=== PATIENT | female | born 1975 | race African-American/Black ===

== ENCOUNTER 2016-02-25 14:18 | Emergency (ER) | payer SELFPAY ==
[2016-02-25 14:42] VITALS: TEMP 97.9
--- NOTE | 2016-02-25 14:44 | ED.PDOC ---
History of Present Illness - General Chief Complaint: Back Pain or Injury Stated Complaint: upper back pain Time Seen by Provider: 02/25/16 14:23 Source: patient Exam Limitations: no limitations - History of Present Illness Initial Comments: the patient is a 40-year-old -Citizen Of [place] female presenting to the emergency room secondary to left upper back pain present for approximately 24 hours. The pain came on acutely when she was reaching across the bed. Extends down from the tissue adjacent to the left side of C7 down through T7. There is pain over the rhomboid muscle. Pain extends out to the edge of the scapula. There is no bruising. There is some muscle spasm noted. There is no gross deformity however. There is no rash. There is no erythema. Sensation is preserved. Lungs are clear. Range of motion passive and active for more preserved however she does limit somewhat due to pain with that shoulder. no rash, nuchal rigidity or meningeal signs. No headache. Timing/Duration: 24 hours Severity: moderate Improving Factors: immobilization Worsening Factors: movement Associated Symptoms: denies symptoms Allergies/Adverse Reactions: Allergies Codeine Allergy (Verified 01/13/16 14:03) Doxycycline Allergy (Verified 01/13/16 14:03) Penicillins Allergy (Verified 01/13/16 14:03) Home Medications: Ambulatory Orders Atenolol 06/27/14 Mmakbjqwfrltn-Kihd-Hfkkeqsgzs [Fioricet] 1 ea PO Q8H PRN #21 tab 02/25/16 Cyclobenzaprine HCl [Flexeril] 5 mg PO TID PRN #30 tab 02/25/16 Fluoxetine HCl [PROzac] 20 mg PO DAILY 02/25/16 Loratadine [Claritin] 10 mg PO DAILY 02/25/16 predniSONE [Prednisone] 20 mg PO DAILY #5 tab 02/25/16 Review of Systems - Review of Systems Constitutional: States: no symptoms reported EENTM: States: no symptoms reported Respiratory: States: no symptoms reported Cardiology: States: no symptoms reported Gastrointestinal/Abdominal: States: no symptoms reported Genitourinary: States: no symptoms reported Musculoskeletal: States: back pain Skin: States: no symptoms reported Neurological: States: no symptoms reported Endocrine: States: no symptoms reported All other Systems: No Change from Baseline Past Medical History (General) - Patient Medical History Hx Seizures: No Hx Asthma: Yes Hx Cardiac Disorders: No Hx Congestive Heart Failure: No Hx Pacemaker: No Hx Hypertension: Yes Hx Diabetes: No Hx Gastroesophageal Reflux: No Hx Cancer: No Hx Hepatitis C: No - Vaccination History Hx Tetanus, Diphtheria Vaccination: No Hx Influenza Vaccination: No Hx Pneumococcal Vaccination: No - Social History Hx Tobacco Use: Yes Hx Alcohol Use: No Hx Substance Use Treatment: No - Female History Patient : No Family Medical History - Family History Mother Family History: Unknown Physical Exam - Physical Exam General Appearance: Alert, Comfortable, No apparent distress Eye Exam: bilateral normal Ears, Nose, Throat: normal ENT inspection Neck: full range of motion, supple Respiratory: lungs clear, normal breath sounds, no respiratory distress, no accessory muscle use Cardiovascular/Chest: normal peripheral pulses, regular rate, rhythm, no edema Peripheral Pulses: radial,right: 2+, radial,left: 2+ Gastrointestinal/Abdominal: other - obese Rectal Exam: deferred Back Exam: other - see history of present illness. There is no tenderness to palpation over the spinous processes. There is no step-off. No gross deformity. Neurologic: alert, normal mood/affect, oriented x 3 Skin Exam: normal color Progress - Progress Progress: 02/25/16 14:44 the patient is a 40-year-old female presenting with a left-sided rhomboid and trapezius strain. She needs to do stretching exercises as instructed. She'll be placed on prednisone for 5 days along with a muscle relaxer and Fioricet for pain control. She needs to use topical heat. She needs to follow-up with her primary care doctor early next week. ER warnings were given for any worsening. Departure - Departure Clinical Impression: Rhomboid muscle strain Qualifiers: Encounter type: initial encounter Qualifier Code: (S29.012A) Strain of muscle and tendon of back wall of thorax, initial encounter Disposition: Discharge to Home or Self Care Condition: Fair Departure Forms: ED Discharge - Pt. Copy, Patient Portal Self Enrollment Instructions: DI for Muscle Strain Diet: low fat, low cholesterol Activity: increase activity as tolerated Referrals: Lissett Argueta NP [Primary Care Provider] - 1-2 Weeks Prescriptions: Dnrgzteyjoxng-Uqek-Jxieucslud [Fioricet] 1 ea PO Q8H PRN #21 tab PRN Reason: Pain Cyclobenzaprine HCl [Flexeril] 5 mg PO TID PRN #30 tab PRN Reason: Muscle Spasms predniSONE [Prednisone] 20 mg PO DAILY #5 tab Home Medications: Ambulatory Orders Atenolol 06/27/14 Jtuevqzmfswve-Zqfy-Gxjjybqivx [Fioricet] 1 ea PO Q8H PRN #21 tab 02/25/16 Cyclobenzaprine HCl [Flexeril] 5 mg PO TID PRN #30 tab 02/25/16 Fluoxetine HCl [PROzac] 20 mg PO DAILY 02/25/16 Loratadine [Claritin] 10 mg PO DAILY 02/25/16 predniSONE [Prednisone] 20 mg PO DAILY #5 tab 02/25/16 Additional Instructions: the patient is a 40-year-old female presenting with a left-sided rhomboid and trapezius strain. She needs to do stretching exercises as instructed. She'll be placed on prednisone for 5 days along with a muscle relaxer and Fioricet for pain control. She needs to use topical heat. She needs to follow-up with her primary care doctor early next week. ER warnings were given for any worsening.
[2016-02-25] MEDS ORDERED: KETOROLAC TROMETHAMINE INJ 30 MG/ML VIAL IM ONE (14:48)
[2016-02-25 15:06] VITALS: BP 127/86; O2SAT 96
== END 2016-02-25 15:10 | disposition home or self-care (01) ==
LOC: ER 14:18
DX: S29.012A Strain of muscle and tendon of back wall of thorax, initial encounter (principal); Z88.6 Allergy status to analgesic agent; Z88.3 Allergy status to other anti-infective agents; Z88.0 Allergy status to penicillin; I10 Essential (primary) hypertension; J45.909 Unspecified asthma, uncomplicated; Z87.891 Personal history of nicotine dependence; Z79.899 Other long term (current) drug therapy; X50.1XXA Overexertion from prolonged static or awkward postures, initial encounter

== ENCOUNTER 2016-05-18 13:25 | Observation (INO) | payer SELFPAY ==
--- NOTE | 2016-05-18 13:44 | ED.PDOC ---
History of Present Illness - General Time Seen by Provider: 05/18/16 13:36 Source: patient Additional Information: PT C/O [facility] AND DIZZINESS - History of Present Illness Initial Comments: PT STATES SX'S STARTED THIS AM WITH [facility] FOLLOWED BY DIZZINESS. WENT TO WORK DEVELOPED CP, SO SHE CAME TO ER FOR EVALUATION Severity: moderate Improving Factors: nothing Worsening Factors: nothing Allergies/Adverse Reactions: Allergies Codeine Allergy (Verified 05/18/16 13:41) Doxycycline Allergy (Verified 05/18/16 13:41) Penicillins Allergy (Verified 05/18/16 13:41) Home Medications: Ambulatory Orders Atenolol & Chlorthalidone [Atenolol/Chlorthalidone 50-25 mg] 1 tab PO DAILY 05/31 Fluoxetine HCl [PROzac] 20 mg PO DAILY 05/18/16 Loratadine [Claritin] 10 mg PO DAILY 05/18/16 Ranitidine HCl 150 mg PO DAILY 05/18/16 Review of Systems - Review of Systems Constitutional: States: diaphoresis. Denies: chills, fever EENTM: Denies: blurred vision, throat pain Respiratory: States: short of breath. Denies: cough, wheezing Cardiology: States: chest pain. Denies: palpitations, syncope Gastrointestinal/Abdominal: States: nausea, vomiting. Denies: abdominal pain Genitourinary: States: no symptoms reported Musculoskeletal: States: no symptoms reported Skin: States: no symptoms reported Neurological: States: headache, other - VERTIGO. Denies: numbness Endocrine: States: no symptoms reported Past Medical History (General) - Patient Medical History Hx Seizures: No Hx Asthma: Yes Hx Cardiac Disorders: No Hx Congestive Heart Failure: No Hx Pacemaker: No Hx Hypertension: Yes Hx Diabetes: No Hx Gastroesophageal Reflux: No Hx Cancer: No Hx Hepatitis C: No Surgical History: no surgical history - Vaccination History Hx Tetanus, Diphtheria Vaccination: Yes Hx Influenza Vaccination: No Hx Pneumococcal Vaccination: No - Social History Hx Tobacco Use: Yes Hx Alcohol Use: No Hx Substance Use Treatment: No Hx Depression: Yes - Activities of Daily Living Hospice Agency (if applicable):: None - Female History Patient is a Female of Child Bearing Age (10 -59 yrs old): Yes Patient : No Family Medical History - Family History Mother Family History: Unknown Physical Exam - Physical Exam General Appearance: Alert, Anxious, No apparent distress, Obese Eye Exam: bilateral normal Ears, Nose, Throat: hearing grossly normal, normal ENT inspection, normal pharynx Neck: non-tender, full range of motion, supple Respiratory: lungs clear, normal breath sounds, no respiratory distress Cardiovascular/Chest: regular rate, rhythm, no edema, no murmur Gastrointestinal/Abdominal: normal bowel sounds, non tender, soft, no organomegaly Back Exam: normal inspection, no CVA tenderness, no vertebral tenderness Extremity: normal range of motion, normal inspection Neurologic: normal mood/affect, oriented x 3 Skin Exam: normal color Lymphatic: no adenopathy Progress - Progress Progress: 05/18/16 14:46 PT FEELS BETTER. IS DIFFICULT TO TELL WHETHER SHE IS STILL HAVING CP OR NOT. SHE USES STATEMENTS SUCH "NOT MUCH, NOT REALLY, AND I'M BETTER." I SUSPECT SHE MIGHT BE HAVING SOME RESIDUAL PAIN. HAVE RECOMMENDED OBSERVATION SHE IS CONSIDERING AT THIS POINT IN TIME. - EKG/XRAY/CT EKG: Sinus - RATE 69, NL AXIS, NL INTERVALS, NON SP T WAVE CHANGES, NAIP, COMPARED TO 06/27/14, NO SIGN CHANGE. Xray Comments: HAVE REVIEWED FILM AND REPORT AGREE YEISON Departure - Departure Clinical Impression: Dizziness, nonspecific, Chronic hypertension Chest pain Qualifiers: Chest pain type: unspecified Qualifier Code: (R07.9) Chest pain, unspecified ICD-10 Supporting Text: DDX. CHEST WALL PAIN, GERD, ANGINA, NSTEMI Time of Disposition: 15:45 - D/W KIAH WILL ADMIT Disposition: Discharge to Home or Self Group Home Medications: Ambulatory Orders Atenolol & Chlorthalidone [Atenolol/Chlorthalidone 50-25 mg] 1 tab PO DAILY 05/31 Fluoxetine HCl [PROzac] 20 mg PO DAILY 05/18/16 Loratadine [Claritin] 10 mg PO DAILY 05/18/16 Ranitidine HCl 150 mg PO DAILY 05/18/16
[2016-05-18] MEDS ORDERED: SODIUM CHLORIDE 0.9% 1000ML 1,000 ML IVS ONE (13:48)
[2016-05-18] MEDS ORDERED: KETOROLAC TROMETHAMINE INJ 30 MG/ML VIAL IV ONE (13:48)
[2016-05-18] MEDS ORDERED: MECLIZINE HCL 12.5 MG TAB PO ONE (13:49)
--- NOTE | 2016-05-18 14:23 | RAD ---
EXAM DESCRIPTION: Chest,2 Views CLINICAL HISTORY: 40 years,Female,CHEST PAIN COMPARISON: April 18, 2007 FINDINGS: There are no consolidations. No effusions. No pneumothoraces. No nodules. Bony elements unremarkable for age. IMPRESSION: Unremarkable chest for age stable Electronically signed by: Nicolás Park MD 05/18/2016 2:23 PM CDT
--- NOTE | 2016-05-18 16:14 | HP ---
SUPERVISING PHYSICIAN: Jeffery Morocho M.D. CHIEF COMPLAINT: Headache and dizziness. HISTORY OF PRESENT ILLNESS: Ms. Sun is a 40 year-old female patient that noted this morning she woke up with a headache and that was followed with some dizziness. She just kind of worked through this, went to work and then at work developed some chest discomfort that she called chest pains and after that point she presented to the Emergency Department for evaluation. In the Emergency Department, laboratory studies showed that he white count was slightly elevated at 11.9. Chemistries showed troponin to be less than 0.02 and electrolytes were all within normal limits. Her initial EKG showed normal sinus rhythm at 69 with just some nonspecific T wave changes but compared to 06/27/14 no significant changes. She was given Toradol and Meclizine in the Emergency Department and her symptoms resolved. Given that she has a history of hypertension and her current symptoms prior to admission, the patient is going to be placed in Observation tonight to further rule out any acute coronary syndrome to have repeat cardiac enzymes and close cardiac telemetry. She was admitted to the Medical/Surgical floor in stable condition. It was also noted that the patient has been having a significant amount of gastroesophageal reflux disease type symptoms and taking Xanax on a regular basis, but she notes the indigestion is getting worse on a daily basis. She has inability to sleep well at night secondary to the indigestion. PAST MEDICAL HISTORY: 1. Asthma. 2. Hypertension. 3. Depression. 4. Seasonal allergies. 5. History of migraines. 6. Chronic back pain. 7. Gastroesophageal reflux disease. PAST SURGICAL HISTORY: She has not had any surgeries. HOME MEDICATIONS: 1. Atenolol/Chlorthalidone 50/25 mg 1 tab daily. 2. Claritin 10 mg daily. 3. Prozac 20 mg daily. 4. Ranitidine 150 mg daily. ALLERGIES: CODEINE, DOXYCYCLINE AND PENICILLINS. FAMILY HISTORY: Significant for congestive heart failure and diabetes. SOCIAL HISTORY: The patient works at [employer]. She lives in [place]. She does have a history of smoking since age 25, but says she only smokes 2 to 3 cigarettes a day. She denies ever drinking or using any illicit drugs. REVIEW OF SYSTEMS: CONSTITUTIONAL: Noted for some diaphoresis with the dizziness, but denies any chills or fever. HEENT: Denies any blurred vision, sore throat, ear pain or nasal congestion. RESPIRATORY: Noted some shortness of breath with current symptoms prior to arrival. Denies any cough, wheezing or upper respiratory symptoms. CARDIOVASCULAR: As noted in the History of Present Illness with chest pains but denies any palpitations or any syncopal episodes. GASTROINTESTINAL: She has had some nausea and vomiting, and notes that she has had some frequent diarrhea, but denies any abdominal pain. GENITOURINARY: Denies any dysuria, hematuria or other urinary symptoms. NEUROLOGIC: She does have history of headaches and migraines, and has a recent episode of vertigo as noted in the History of Present Illness, but denies any numbness or paresthesias or syncopal episodes. PHYSICAL EXAMINATION: VITAL SIGNS: Temperature 97.8, pulse 55, blood pressure 123/82, respirations 18 , satting 100% on room air. Admission weight is 79.3 kg. GENERAL: The patient on admission to the Medical/Surgical floor appeared to be without any acute distress. She is obese in appearance and well hydrated. HEENT: Tympanic membranes are clear bilaterally. Oropharynx is pink. Mucosal membranes are moist. There are no lesions. NECK: No jugular venous distention noted. Neck is supple with full range of motion, non-tender. CHEST: Lungs are clear to auscultation without any rhonchi, wheezing or rales. CARDIOVASCULAR: Regular rate and rhythm without appreciable murmurs, gallops, or rubs. ABDOMEN: Obese but soft, non-tender. Positive bowel sounds. EXTREMITIES: No clubbing, cyanosis or edema. NEUROLOGIC: She is alert and oriented times three. LABORATORY: Initial white count was 11.9, hemoglobin 13.7, hematocrit 41.6, platelet count 215,000. Differential shows to be without a left shift. Chemistries show sodium 138, potassium 3.6, magnesium is pending. BUN 17, creatinine 0.72. Initial troponin was less than 0.02. Liver functions showed to be within normal limits. Urinalysis is pending. RADIOLOGY: Chest x-ray per radiology interpretation in the Emergency Department prior to admission was unremarkable chest for age and stable. ASSESSMENT: 1. Chest pain, unknown etiology with current cardiac enzymes showing negative and EKG without any acute changes. 2. History of hypertension. 3. Recent episodes of diarrhea with some vertigo and headaches with the patient having a history of migraines. 4. Gastroesophageal reflux disease, symptomatic requiring self medication with Ranidine noting that symptoms had been worsening over the last month. 5. Depression and anxiety. 6. Seasonal allergies. 7. Chronic back pain. 8. Hypertension. PLAN: The patient will be placed in Observation tonight to rule out any acute coronary syndrome. She will be placed on cardiac telemetry, close observation with repeat cardiac enzymes every 6 hours and in the morning with EKG as well. She will be started on DVT prophylaxis as per protocol. Her medications will be resumed once they have been updated and verified in the medical records. I will go ahead and do a H. pylori IgG test as the patient has noted her GERD symptoms have worsened. Will anticipate possible discharge tomorrow with length of stay 1 to 2 days. Until discharge, will continue to monitor the patient closely and treat appropriately. Once the patient is discharged, she will need close clinical followup with her primary care provider at the [facility] as well as Cardiology to be arranged through the clinic. Until then, will monitor and treat appropriately. #[id number] [facility]
[2016-05-18] MEDS ORDERED: ACETAMINOPHEN 325 MG TAB PO PRN (16:29)
[2016-05-18] MEDS ORDERED: SODIUM CHLORIDE 0.9% (FLUSH) 10 ML SYG IV PRN (16:29)
[2016-05-18] MEDS ORDERED: MORPHINE SULFATE INJ 10 MG/ML VIAL IV PRN (16:29)
[2016-05-18] MEDS ORDERED: ASPIRIN (CHEWABLE) 81 MG TAB PO ONE (16:29)
[2016-05-18] MEDS ORDERED: NITROGLYCERIN 0.4 MG 25 EA TAB SL PRN (16:29)
[2016-05-18] MEDS ORDERED: IV SET AND CAP CHANGE INJ INJ SCH (16:30)
[2016-05-18] MEDS ORDERED: PANTOPRAZOLE SODIUM IV 40 MG VIAL IV SCH (18:00)
[2016-05-18] MEDS: SODIUM CHLORIDE 0.9% (FLUSH) 10 ML SYG IV SCH (20:39)
[2016-05-18] MEDS ORDERED: LORATADINE 10 MG TAB PO SCH (21:00)
[2016-05-19] MEDS ORDERED: CHLORTHALIDONE 25 MG TAB ONE (08:01)
[2016-05-19] MEDS ORDERED: ATENOLOL 25 MG TAB ONE (08:01)
[2016-05-19] MEDS: SODIUM CHLORIDE 0.9% (FLUSH) 10 ML SYG IV SCH (08:36)
[2016-05-19] MEDS ORDERED: ASPIRIN TABLET 325 MG TAB PO SCH (09:00)
[2016-05-19] MEDS ORDERED: CHLORTHALIDONE 25 MG TAB PO SCH (09:00)
[2016-05-19] MEDS ORDERED: [UNRECOGNIZED DRUG - OTHER] PO SCH (09:00)
[2016-05-19] MEDS ORDERED: ATENOLOL 25 MG TAB PO SCH (09:00)
[2016-05-19] MEDS ORDERED: FLUoxetine HCL 20 MG CAP PO SCH (09:00)
[2016-05-19] MEDS ORDERED: ATENOLOL PO SCH (09:00)
[2016-05-19] MEDS ORDERED: CHLORTHALIDONE PO SCH (09:00)
[2016-05-19 10:27] VITALS: BP 115/79; TEMP 98; O2SAT 97
[2016-05-19] MEDS ORDERED: POTASSIUM CHLORIDE 20 MEQ TAB PO ONE (11:04)
[2016-05-19] MEDS ORDERED: PANTOPRAZOLE SODIUM IV 40 MG VIAL IV SCH (21:00)
--- NOTE | 2016-05-19 21:23 | DS ---
SUPERVISING PHYSICIAN: Shaquille Gonzalez M.D. DISCHARGE DIAGNOSIS: 1. Chest pain unknown etiology with current cardiac enzymes showing negative as well as no changes on her EKG. 2. History of hypertension. 3. Recent episodes of diarrhea with some vertigo and headaches with the patient having had a history of migraines. 4. Gastroesophageal reflux disease that has required self medications of Ranitidine with worsening symptoms over the last month. 5. Depression and anxiety. 6. Seasonal allergies. 7. Chronic back pain. 8. Hypertension. HISTORY OF PRESENT ILLNESS: This is a 40 year-old female patient who woke up on the morning of her admission with a headache and some dizziness. Some of the symptoms resolved and she went to work, but after that she developed some chest discomfort and she came to the Emergency Room for evaluation. In the Emergency Room, her white count was slightly elevated at 11.9. Troponin was less than 0.02 and electrolytes were all within normal limits. Her initial EKG showed normal sinus rhythm at 69 and there were no changes compared to her EKG of 06/27/14. She was given Toradol and Meclizine in the Emergency Room and her symptoms resolved. She was placed in Observation to rule out any acute coronary syndrome and to repeat her cardiac enzymes as well as cardiac telemetry. Upon admission, she did have quite a bit of gastroesophageal reflux symptoms and she takes Xanax on a regular basis, but over the last month her indigestion has worsened and she has been taking quite a bit of Ranitidine. Her symptoms are mostly problematic at night. HOSPITAL COURSE: The patient continued to have negative cardiac enzymes. She was given Pantoprazole IV and her GERD symptoms improved. Her vital signs remained stable and she was afebrile. Her complete blood count was basically within normal limits as well as her chemistry other than her potassium was slightly low at 3.4. She was given 1 dose of potassium. Her glucose was slightly elevated although that could have been due to increased stressors. Her lipid panel was within normal limits. At this point, I believe she can be discharged home with close followup with her primary care physician which is Lissett Argueta at [facility]. DISCHARGE PLAN: The patient will be discharged home in stable condition. She is to resume her previous diet. She is to have a followup with Lissett Argueta on 05/24/16 at 3:10 PM. It is recommended that she have a GI consultation. I have discharged her on her home medications as well as Protonix daily for 30 days. Her blood sugars were slightly elevated, so further testing for diabetes may be considered. She is to return to the hospital or followup at [facility] for any problems. DISCHARGE MEDICATIONS: 1. Ranitidine. 2. Claritin. 3. Prozac. 4. Atenolol. 5. Chlorthalidone. 6. Pantoprazole. Dr. Gonzalez is the collaborating physician available for consultation. #[id number] [facility]
== END 2016-05-19 12:55 | disposition home or self-care (01) ==
LOC: ER 13:25 → MS 16:13
PROVIDERS: ADMIT Nurse Practitioner Family; ATTEND Nurse Practitioner Acute Care
DX: R07.89 Other chest pain (principal); I10 Essential (primary) hypertension; R19.7 Diarrhea, unspecified; R42 Dizziness and giddiness; R51 Headache; R06.02 Shortness of breath; K21.9 Gastro-esophageal reflux disease without esophagitis; F32.9 Major depressive disorder, single episode, unspecified; F41.9 Anxiety disorder, unspecified; J30.2 Other seasonal allergic rhinitis; G89.29 Other chronic pain; M54.9 Dorsalgia, unspecified; F17.210 Nicotine dependence, cigarettes, uncomplicated; Z79.899 Other long term (current) drug therapy; Z88.0 Allergy status to penicillin; Z88.1 Allergy status to other antibiotic agents; Z88.6 Allergy status to analgesic agent; Z82.49 Family history of ischemic heart disease and other diseases of the circulatory system; Z83.3 Family history of diabetes mellitus
CPT/HCPCS: 36415 ×4; 71020; 80048; 80053; 80061; 80307; 81001; 81025; 82550 ×3; 82553 ×3; 83735; 84484 ×3; 85025 ×2; 86317; 93005 ×3; 94760 ×3; 96361; 96374; 96375; 99284; G0378; J1885; J7030

== ENCOUNTER 2016-07-23 12:50 | Emergency (ER) | payer SELFPAY ==
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
--- NOTE | 2016-07-23 14:41 | RAD ---
EXAM DESCRIPTION: Hand,Right 3 Views CLINICAL HISTORY: pain COMPARISON: May 25, 2009 IMPRESSION: 3 views of the right hand show no evidence of acute fracture, focal bone destruction, or joint dislocation. There is 5 mm of ulnar negative variant is incidentally noted. Electronically signed by: Joo Bravo MD 07/23/2016 2:42 PM CDT
--- NOTE | 2016-07-23 14:43 | RAD ---
EXAM DESCRIPTION: Shoulder,Right 2 or More Views CLINICAL HISTORY: 40 years Female, pain COMPARISON: None. FINDINGS: There is no acute fracture or malalignment. The AC joint is unremarkable. There is no rib fracture or soft tissue abnormality. IMPRESSION: Negative exam. Electronically signed by: Chaparro Olguin MD 07/23/2016 2:43 PM CDT Workstation: [id number]
[2016-07-23 15:39] VITALS: BP 121/79
[2016-07-23 16:16] VITALS: TEMP 98; O2SAT 99
== END 2016-07-23 16:12 | disposition home or self-care (01) ==
LOC: ER 12:50
DX: M79.621 Pain in right upper arm (principal); M25.441 Effusion, right hand; Z82.49 Family history of ischemic heart disease and other diseases of the circulatory system; F32.9 Major depressive disorder, single episode, unspecified; I10 Essential (primary) hypertension; Q85.00 Neurofibromatosis, unspecified; Z79.899 Other long term (current) drug therapy; Z88.6 Allergy status to analgesic agent; Z88.3 Allergy status to other anti-infective agents; Z88.0 Allergy status to penicillin

== ENCOUNTER 2017-04-09 09:50 | Emergency (ER) | payer SELFPAY ==
[2017-04-09 10:06] VITALS: BP 130/90; TEMP 97.1; O2SAT 99
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
== END 2017-04-09 10:36 | disposition home or self-care (01) ==
LOC: ER 09:50
DX: H10.32 Unspecified acute conjunctivitis, left eye (principal); I10 Essential (primary) hypertension

== ENCOUNTER 2017-10-12 11:23 | Emergency (ER) | payer SELFPAY ==
[2017-10-12 11:39] VITALS: TEMP 98.2
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
[2017-10-12] MEDS ORDERED: LACTATED RINGERS 1,000 ML IVS ONE (11:44)
[2017-10-12] MEDS ORDERED: SUCRALFATE 1 GM/10 ML 1 GM UD PO ONE (11:44)
[2017-10-12] MEDS ORDERED: ALUM & MAG HYDROX-SIMETHICONE 30 ML, LIDOCAINE VISCOUS 2% 15 ML PO ONE ×2 (11:44)
[2017-10-12] MEDS ORDERED: PANTOPRAZOLE SODIUM IV 40 MG VIAL IV ONE (11:45)
[2017-10-12] MEDS ORDERED: ALUM & MAG HYDROX-SIMETHICONE 30 ML UD ONE (11:48)
[2017-10-12] MEDS ORDERED: LIDOCAINE HCL 2% (MOUTH-THROAT) 15 ML UD ONE (11:48)
--- NOTE | 2017-10-12 13:11 | US ---
EXAM DESCRIPTION: Abdomen,Complete: Ultrasound. CLINICAL HISTORY: pain COMPARISON: None Available. TECHNIQUE: Transabdominal scannin-dimensional and Doppler modes. FINDINGS: Gallbladder: Multiple echogenic stones within the gallbladder lumen with the largest measuring 1.7 cm. Posterior shadowing. Gallbladder wall measures 2.4 mm which is within normal limits and no thickening. Nontender with transducer pressure. Common bile duct: 5.6 Millimeters normal caliber Liver: Long axis is 17.1 cm. Well-defined echogenic structure in the right lobe measures 1.4 cm and a second similar-appearing structure in the right lobe measures 2.1 cm neither is vascular. No acoustic shadowing. Otherwise normal echogenicity and vascularity with normal caliber and hepatopedal flow in the portal vein. Smooth capsule with no ascites no intrahepatic biliary dilatation. Pancreas: Normal size and echogenicity. Abdominal aorta: Normal caliber from the proximal segment to the distal bifurcation 2.1 to 1.9 cm. IVC: visualized; normal caliber. Spleen normal echogenicity; long axis measurement is 9.8 cm. Right kidney: 11.4 cm long axis. Normal cortical thickness and echogenicity. No hydronephrosis or large calcifications. Left kidney: 10.7 cm long axis. Normal cortical thickness and echogenicity. No hydronephrosis or large calcifications. IMPRESSION: 1. Cholelithiasis of the gallbladder with no wall thickening or fluid. No tenderness during scanning. Normal caliber of the common bile duct 2. 2 hemangiomas in the liver. Borderline enlargement of the liver with normal echogenicity ducts and vascularity. Smooth capsule with no ascites. Normal ultrasound of the pancreas. 3. Ultrasound of the spleen and bilateral kidneys is unremarkable. 4. Normal caliber of the abdominal aorta and the IVC. Electronically signed by: Johnny Tamayo MD 10/12/2017 1:10 PM CDT
[2017-10-12 13:38] VITALS: BP 141/84; O2SAT 98
== END 2017-10-12 13:38 | disposition home or self-care (01) ==
LOC: ER 11:23
DX: K80.20 Calculus of gallbladder without cholecystitis without obstruction (principal); R11.2 Nausea with vomiting, unspecified; J45.909 Unspecified asthma, uncomplicated; I10 Essential (primary) hypertension; F32.9 Major depressive disorder, single episode, unspecified; Z87.891 Personal history of nicotine dependence; Z86.73 Personal history of transient ischemic attack (TIA), and cerebral infarction without residual deficits
CPT/HCPCS: 36415; 76700; 80048; 80076; 81001; 82550; 82553; 83690; 84484; 85025; 85610; 85730; J7120

== ENCOUNTER 2018-03-03 02:05 | Emergency (ER) | payer SELFPAY ==
[2018-03-03 02:21] VITALS: TEMP 96.6
[2018-03-03] MEDS ORDERED: ORPHENADRINE CITRATE 30 MG/ML AMP IV ONE (02:23)
[2018-03-03] MEDS ORDERED: KETOROLAC TROMETHAMINE INJ 30 MG/ML VIAL IV ONE (02:23)
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
--- NOTE | 2018-03-03 02:35 | RAD ---
EXAM DESCRIPTION: AP view of the chest CLINICAL HISTORY:42 years Female, R chest pain Comparison: May 18, 2016 FINDINGS: Minimal right basilar atelectasis. The lung volumes are decreased. Trace fluid in minor fissure. Cardiac silhouette is normal. IMPRESSION: Minimal right basilar subsegmental atelectasis. Electronically signed by: Danyel Muniz DO 03/03/2018 2:34 AM [facility]
[2018-03-03] MEDS ORDERED: fentaNYL CITRATE INJ 50 MCG/ML AMP IV ONE ×2 (03:43→04:12)
[2018-03-03] MEDS ORDERED: ONDANSETRON INJ 4 MG/2 ML VIAL IV ONE (03:44)
[2018-03-03] MEDS ORDERED: cefTRIAXone SODIUM 1 GM in SODIUM CHL 0.9% 50ML MIN-BAG+ 50 ML IVPB ONE (03:54)
[2018-03-03] MEDS ORDERED: cefTRIAXone SODIUM 1 GM VIAL ONE (03:56)
[2018-03-03] MEDS ORDERED: SODIUM CHL 0.9% 50ML MIN-BAG+ 50 ML IVPB ONE (03:56)
--- NOTE | 2018-03-03 04:02 | CT ---
EXAM: CT CHEST ANGIOGRAPHY WITH IV CONTRAST HISTORY: pleuritic R chest pain COMPARISON: None Available TECHNIQUE: Multiple helical axial tomographic images were obtained of the chest following administration of intravenous contrast per angiographic protocol. MIP reformatted images were obtained. This exam was performed according to our departmental dose-optimization program, which includes automated exposure control, adjustment of the mA and/or kV according to patient size and/or use of iterative reconstruction technique. FINDINGS: Thyroid gland: unremarkable. Axilla: unremarkable. Pulmonary arteries: Pulmonary arteries appear patent. No evidence of pulmonary embolism. Aorta: No evidence of aortic dissection or aneurysm. Mediastinum/yola: There is a mildly prominent right lower paratracheal lymph node measuring 2 cm x 1.6 cm (series 2, image 33). There is a prominent right hilar lymph node measuring 2.6 cm x 1.4 cm. Heart: Heart is normal in size. Lungs/airways: There is a wedge-shaped area of consolidation in the right upper lobe extending to the pleural surface. Airways are patent. Mild centrilobular and paraseptal emphysematous changes are present. Pleural spaces: There is a trace right pleural effusion. No pneumothorax. Osseous: Unremarkable. Soft tissues: Unremarkable. Visualized abdomen: Gallstone within the gallbladder is partly imaged. IMPRESSION: 1. No evidence of pulmonary embolism. 2. Wedge-shaped area of consolidation in the right upper lobe extending to the pleural surface which could represent pneumonia in the proper clinical setting with underlying malignancy difficult to entirely exclude. Consider follow-up CT in three months to ensure resolution. 3. Trace right pleural effusion. 4. Mildly prominent mediastinal and right hilar lymph nodes which may be reactive and can be followed up as appropriate. Electronically signed by: Jax Churchill MD 03/03/2018 4:01 AM [facility] [[email or web address]]
[2018-03-03] MEDS ORDERED: levoFLOXacin 500 MG TAB PO ONE (04:11)
[2018-03-03 04:38] VITALS: BP 101/64; O2SAT 98
== END 2018-03-03 04:38 | disposition home or self-care (01) ==
LOC: ER 02:05
DX: J18.9 Pneumonia, unspecified organism (principal); F32.9 Major depressive disorder, single episode, unspecified; I10 Essential (primary) hypertension; J45.909 Unspecified asthma, uncomplicated; Z87.891 Personal history of nicotine dependence; Z86.73 Personal history of transient ischemic attack (TIA), and cerebral infarction without residual deficits; Z79.899 Other long term (current) drug therapy; Z88.0 Allergy status to penicillin; Z88.5 Allergy status to narcotic agent; Z88.1 Allergy status to other antibiotic agents
CPT/HCPCS: 71045; 71275; 80053; 85025; 85379; 87040; J0696; J1885; J2360; J2405; J3010; J7050

== ENCOUNTER 2018-03-12 17:11 | Inpatient (IN) | payer SELFPAY ==
[2018-03-12] MEDS ORDERED: SODIUM CHLORIDE 0.9% 1000ML 1,000 ML IVS ONE (17:27)
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
[2018-03-12] MEDS ORDERED: ONDANSETRON INJ 4 MG/2 ML VIAL IV ONE (17:28)
--- NOTE | 2018-03-12 17:47 | RAD ---
EXAM DESCRIPTION: Chest,1 View CLINICAL HISTORY: 42 years Female, RIGHT PNEUMONIA COMPARISON: March 03, 2018 TECHNIQUE: Single view chest FINDINGS: Pulmonary consolidation has developed at the right base. No other changes. IMPRESSION: Right basilar pulmonary consolidation has developed Electronically signed by: Naseem Chance 03/12/2018 5:46 PM [employer]
[2018-03-12] MEDS ORDERED: PROMETHAZINE HCL INJ 25 MG/ML VIAL IM ONE (18:13)
[2018-03-12] MEDS ORDERED: ALUM & MAG HYDROX-SIMETHICONE 30 ML, LIDOCAINE VISCOUS 2% 15 ML PO ONE ×2 (18:46)
[2018-03-12] MEDS ORDERED: SUCRALFATE 1 GM/10 ML 1 GM UD PO ONE (18:47)
[2018-03-12] MEDS ORDERED: LIDOCAINE HCL 2% (MOUTH-THROAT) 15 ML UD ONE (19:02)
[2018-03-12] MEDS ORDERED: ALUM & MAG HYDROX-SIMETHICONE 30 ML UD ONE (19:02)
--- NOTE | 2018-03-12 21:43 | RAD ---
EXAM DESCRIPTION: Abdomen Flat Upright CLINICAL HISTORY: ABD PAIN COMPARISON: Ultrasound October 12, 2017 FINDINGS: Supine and upright images of the abdomen were submitted. Patient received contrast material for a CT scan. There is contrast material within the collecting system. There is no hydronephrosis. Curvilinear calcification at the right upper quadrant compatible with gallstones. Prior sonogram October 12, 2017 demonstrated gallstones. Blunted right costophrenic angle compatible pleural fluid versus pleural thickening. There is no free air in the abdomen. There is no evidence of bowel obstruction. IMPRESSION: Cholelithiasis. Blunted right costophrenic angle compatible with pleural fluid versus pleural thickening. Electronically signed by: Aleks Quiñones MD 03/12/2018 9:42 PM [facility]
[2018-03-12] MEDS ORDERED: levoFLOXacin 500MG IV 500 MG in PREMIX BAG 1 BAG IVPB ONE (21:46)
[2018-03-12] MEDS ORDERED: levoFLOXacin 500MG IV 100 ML IVPB ONE (22:38)
--- NOTE | 2018-03-12 23:14 | HP ---
SUPERVISING PHYSICIAN: Payam Gibbs MD CHIEF COMPLAINT: Nausea and vomiting with right upper quadrant abdominal pain. HISTORY OF PRESENT ILLNESS: This is a 42 year-old female patient who presented to the Emergency Room today due to nausea and vomiting since Tuesday. On 03/03/18, the patient was seen in the Emergency Room for similar symptoms and she was diagnosed with right-sided pneumonia and was given 5 days of Levaquin. During her course of antibiotics, she no longer had any nausea or vomiting but she continued to have some right-sided back and abdominal pain. After she completed her antibiotics, she said the nausea and vomiting came back and got to the point that on the date of admission she could hardly walk or get out of the car to come into the hospital, the nausea and vomiting was so bad. In September of 2017 she was diagnosed with gallstones but her only upper respiratory symptoms have been a dry cough. In the Emergency Room her vital signs were a tympanic membrane of 97.5 with heart rate of 80, blood pressure 165/102, respiratory rate 20 and 02 saturation 99% on room air. Her laboratory shows WBC of 14,000 with hemoglobin of 12.4 and hematocrit of 38.1. She has a left shift on her differential. Her electrolytes are basically within normal limits with a slightly elevated glucose of 125. Lipase was 22 and liver enzymes were all within normal limits. Urinalysis showed a cloudy appearance with a trace of intact blood, small amount of bilirubin and 2+ urine bacteria. The patient given Levaquin in the Emergency Room as well as some Zofran and some promethazine. She was also given a liter of sodium chloride and also given Carafate suspension. I was called for admission for right lower lobe pneumonia. PAST MEDICAL HISTORY: 1. Asthma. 2. Hypertension. 3. Depression. 4. Seasonal allergies. 5. History of migraines. 6. Chronic back pain. 7. Gastroesophageal reflux disease. 8. Neurofibromatosis. PAST SURGICAL HISTORY: None. . HOME MEDICATIONS: Per the EMR and awaiting verification. ALLERGIES: CODEINE, DOXYCYCLINE AND PENICILLINS. FAMILY HISTORY: Positive for congestive heart failure and diabetes. SOCIAL HISTORY: She lives in [place]. She has a history of smoking since age 25 but she only smokes 3 to 4 cigarettes per day. She denies any ETOH or illicit drug use. REVIEW OF SYSTEMS: GENERAL: Positive for subjective fever and chills as well as fatigue. Negative for weight changes. HEENT: Negative for sinus symptoms, ear pain, vision changes or sore throat. RESPIRATORY: Positive for dry cough that has been going on for several weeks, negative for shortness of breath or wheezing. CARDIOVASCULAR: Negative for chest pain, palpitations or tachycardia. GI: Positive for right upper quadrant abdominal pain as well as right-sided pain that extended to her right back. Positive for nausea and vomiting, negative for dirithromycin or constipation. GENITOURINARY: Negative for dysuria, hematuria, polyuria. NEUROLOGICAL: Positive for occasional migraines, although she presently does not have one. Negative for dizziness or seizures. PHYSICAL EXAMINATION: VITAL SIGNS: Temperature 98.8, pulse rate 90, blood pressure 172/95, respiratory rate 20, 02 saturation 93% on room air. GENERAL: This is a 42 year-old female patient who is lying in her hospital bed. She is in no acute distress. HEENT: Normocephalic and atraumatic. Pupils are equal and reactive. Oropharynx is clear. NECK: Supple without mass. CHEST: Essentially clear to auscultation bilaterally. Chest has equal rise and fall with inspiration and expiration. CARDIOVASCULAR: Regular rate and rhythm. ABDOMEN: Soft, nondistended. She is tender in the right upper quadrant with some mild right CVA tenderness. There is no guarding or rebound tenderness. Bowel sounds are positive. EXTREMITIES: No cyanosis, clubbing, or edema . NEUROLOGIC: She is awake, alert and oriented x 3. Cranial nerves II through XII are grossly intact. Laboratory is as per the history of present illness. RADIOLOGY: Chest x-ray shows right basilar pulmonary consolidation has developed. Abdominal x-ray: (1) Cholelithiasis; (2) Blunted right costophrenic angle compatible with pleural fluid versus pleural thickening. All other labs and films have been reviewed via the EMR. ASSESSMENT: 1. Right upper quadrant abdominal pain with nausea and vomiting. 2. Recent treatment for right lower lobe pneumonia. She was treated with Levaquin for 5 days and seen in the Emergency Room for pneumonia on 03/03/18. She has completed her antibiotic therapy. 3. Cholelithiasis. 4. History of hypertension. 5. History of neurofibromatosis. 6. Gastroesophageal reflux disease. 7. Seasonal allergies. 8. History of migraine headaches. PLAN: We will admit the patient to the hospital. I have continued her Levaquin antibiotics. I have also added Flagyl. I will repeat her lab in the morning as well as a chest x-ray. She will be n.p.o. at midnight and will do a gallbladder sonogram. Depending on the results of the sonogram, Dr. Snow may need to be consulted as she has had fairly significant GI symptoms and very few respiratory symptoms. I have ordered a PPI for ulcer prophylaxis and will hold on Lovenox until after her sonogram but I have ordered SCDs for DVT prophylaxis. She will have a primary IV and her home medications will need to be restarted after testing has been completed. We will continue to monitor the patient closely and follow as needed. #[id number] [facility]
[2018-03-13] MEDS ORDERED: metroNIDAZOLE IV PREMIX 500MG 100 ML IVPB ONE ×2 (01:09→07:22)
[2018-03-13] MEDS: KCL 20MEQ/D5 1/2NS 1,000 ML IVS PRN ×3 (01:17→20:37)
[2018-03-13] MEDS: IV SET AND CAP CHANGE INJ INJ SCH (01:17)
[2018-03-13] MEDS: metroNIDAZOLE IV PREMIX 500MG 500 MG in PREMIX BAG 1 BAG IVPB SCH ×2 (01:18→08:52)
[2018-03-13] MEDS ORDERED: ACETAMINOPHEN 325 MG TAB ONE (04:55)
[2018-03-13] MEDS ORDERED: ACETAMINOPHEN 325 MG TAB PO ONE (04:56)
[2018-03-13] MEDS: ONDANSETRON INJ 4 MG/2 ML VIAL IV PRN ×2 (04:57→20:30)
--- NOTE | 2018-03-13 07:24 | RAD ---
EXAM DESCRIPTION: Abdomen Flat Upright CLINICAL HISTORY: 42 years Female, pna; abd pain COMPARISON: Abdominal radiographs 03/12/2018 TECHNIQUE: 2 views of the abdomen. IMPRESSION: Moderate right pleural effusion. Nondilated bowel gas pattern is present. There is no pathologic calcification overlying the renal shadows or expected course of the ureters. Gallstones are redemonstrated. Curvilinear and serpiginous opacities within the right and left renal collecting systems likely represents residual contrast material. Residual contrast seen within the urinary bladder. Osseous structures and soft tissues are unremarkable. Electronically signed by: Antonio Fierro MD 03/13/2018 7:23 AM [facility]
--- NOTE | 2018-03-13 07:28 | RAD ---
EXAM DESCRIPTION: Chest,2 Views CLINICAL HISTORY: 42 years Female, pna; abd pain COMPARISON: Chest radiograph 03/12/2018. CTA chest 2018. TECHNIQUE: Frontal and lateral views of the chest. IMPRESSION: Cardiac silhouette is stably enlarged. Unchanged moderate right pleural effusion with adjacent atelectasis or consolidation such as pneumonia versus aspiration. Fluid is seen within the right minor fissure. Redemonstrated more well-defined oval-shaped opacity in the right midlung as clinically demonstrated on the comparison CT chest 03/03/2018. Recommend follow-up to resolution to exclude underlying malignancy. No left pleural effusion. No pneumothorax. Osseous structures are intact. Electronically signed by: Antonio Feirro MD 03/13/2018 7:27 AM [employer]
[2018-03-13] MEDS: SODIUM CHLORIDE 0.9% (FLUSH) 10 ML SYG IV SCH ×2 (08:57→20:23)
--- NOTE | 2018-03-13 10:54 | US ---
EXAM DESCRIPTION: Gall Bladder: Ultrasound. CLINICAL HISTORY: abd pain COMPARISON: None Available. TECHNIQUE: Transabdominal scannin-dimensional and Doppler modes. FINDINGS: Gallbladder: Multiple echogenic stones with prominent posterior shadowing limiting visualization of the posterior gallbladder. Wall thickness 1.5 mm within normal range. Tender with transducer pressure. No fluid surrounding the gallbladder. No ascites. Common bile duct: 5.4 mm normal caliber, 3.6 mm at the pancreas. Liver: 1.8 x 1.7 x 1.5 cm circumscribed echogenic mass with no increased vascularity. Long axis of the right lobe 17.7 cm. Normal echogenicity. Ducts not dilated. Hepatopedal flow in the portal vein which is normal caliber. Pancreas: Included segments normal echogenicity with pancreatic duct not seen.. Abdominal aorta: Normal caliber from the proximal segment to the distal bifurcation. IVC: visualized; normal caliber. Right kidney: Minimal thinning of the cortex with normal echogenicity. 12.1 cm long axis. No hydronephrosis or perinephric fluid. IMPRESSION: 1. Cholelithiasis and tenderness with transducer pressure over the gallbladder could indicate cholecystitis. Common bile duct normal caliber. 2. Right pleural effusion. 3. 1.8 cm circumscribed echogenic lesion in the right liver most likely hemangioma. Can be followed up with triple phase CT scan or MRI scan without and with gadolinium IV contrast and hemangioma protocol. 4. Normal caliber of the abdominal aorta and IVC. Mild cortical thinning of the right kidney otherwise negative. Electronically signed by: Johnny Tamayo MD 03/13/2018 10:53 AM [facility] [place]
--- NOTE | 2018-03-13 11:56 | CONS ---
DATE OF CONSULTATION: 03/13/18 REFERRING PHYSICIAN: Hospitalist Service, Dr. Morocho. HISTORY OF PRESENT ILLNESS: The patient is a 42-year-old female who was admitted through the Emergency Room for nausea and vomiting. She has a known history of cholelithiasis and had been treated for 7 days for pneumonia with Levaquin. The patient states she had not been able to keep her medicine, but said she missed no doses of her antibiotic. She has no history of hepatitis or jaundice. She does have a history of anemia, but states she does not have sickle cell trait or anemia. She also had neurofibromatosis with multiple skin lesions. She has also had 2+ bacteria in her urine. PAST MEDICAL HISTORY: 1. Asthma. 2. Hypertension. 3. Depression. 4. Migraines. 5. Gastroesophageal reflux disease. PAST SURGICAL HISTORY: None. OBSTETRIC HISTORY: She has had several children by vaginal delivery. CURRENT MEDICATIONS: Pending. ALLERGIES: CODEINE, DOXYCYCLINE, PENICILLIN. FAMILY HISTORY: Positive for congestive heart failure, diabetes. SOCIAL HISTORY: The patient lives here in [place]. She denies alcohol or drug use. She has a history of smoking, but only 3 to 4 cigarettes daily for almost 20 years. REVIEW OF SYSTEMS: Unremarkable except as in the history of present illness and the fact that the patient had right sided abdominal pain. She has had no hemoptysis or productive cough. PHYSICAL EXAMINATION: GENERAL: The patient is in no acute distress. VITAL SIGNS: The patient is currently afebrile. Blood pressure was elevated. Respiratory rate 20. HEENT: Sclerae nonicteric. Mucous membranes moist. NECK: Without adenopathy. She does have a small neurofibroma in her left lateral neck. CHEST: Decreased breath sounds in the right base posteriorly. Clear superiorly, posterior and anteriorly. HEART: Regular rate and rhythm without murmur. ABDOMEN: Mildly tender in the right upper quadrant without guarding. There is some CVA tenderness. EXTREMITIES: 1 to 2+ edema of bilateral lower extremities. RADIOLOGY: Her chest x-ray revealed an increased pleural effusion and cholelithiasis. Ultrasound performed this morning revealed no thickening, pericholecystic fluid or inflammatory changes otherwise around the gallbladder. LABORATORY: Today, white count 16,000, hemoglobin 11.5, platelet count 294,000, 78% neutrophils. Liver functions all within normal limits. Amylase and lipase within normal limits. Creatinine 0.62, potassium 3, sodium 138. ASSESSMENT: 1. Cholelithiasis with no signs of acute cholecystitis. 2. Pneumonia with pleural effusion. 3. Hypertension. 4. Depression. PLAN: We will restart her diuretics and add cefepime to the antibiotics and consider increasing the dose to 750 mg of Levaquin daily and follow the pleural effusion. If it does not resolve with diuretics and more aggressive antibiotic therapy, then we will consider a thoracentesis. #[id number] [facility]
[2018-03-13] MEDS ORDERED: CEFEPIME 2 GM VIAL ONE ×2 (12:22→23:23)
[2018-03-13] MEDS ORDERED: SODIUM CHL 0.9% 50ML MIN-BAG+ 50 ML IVPB ONE ×2 (12:22→23:23)
[2018-03-13] MEDS: CEFEPIME 2 GM in SODIUM CHL 0.9% 50ML MIN-BAG+ 50 ML IVPB SCH ×2 (12:27→23:26)
[2018-03-13] MEDS ORDERED: FUROSEMIDE INJ 20 MG/2 ML VIAL IV ONE (12:45)
[2018-03-13] MEDS: levoFLOXacin 750MG IV 750 MG in PREMIX BAG 1 BAG IVPB SCH (13:19)
--- NOTE | 2018-03-13 13:52 | PN ---
SUPERVISING PHYSICIAN: Jeffery Morocho MD DATE: 03/13/18 SUBJECTIVE: The patient states she has not had anymore nausea and vomiting. However, she has not had anything by mouth either. She still complains of right upper quadrant pain. It actually seems a little bit more lateral. No significant fever overnight. OBJECTIVE: VITAL SIGNS: Blood pressure 117/76. Heart rate 79. Respiratory rate 16. Temperature 98.0. Oxygen saturation 97%. GENERAL: Ms. Sun is a 42-year-old female in no active distress. NEUROLOGIC: Alert and oriented. LUNGS: Diminished in the right lower base, otherwise clear to auscultation bilaterally. CARDIOVASCULAR: Regular rate and rhythm. Normal S1, S2. ABDOMEN: Soft, obese. Positive bowel sounds. There is right upper quadrant tenderness to palpation. EXTREMITIES: Lower extremities with 2+ edema. Pulses 2+. Capillary refill is within normal limits. LABORATORY: White count 16,000, hemoglobin 11.5, hematocrit 36.0, platelet count 294. Chemistry with sodium 138, potassium 3.0, chloride 109, CO2 22, BUN 8, creatinine 0.62, glucose 122, calcium 8.0, albumin 2.7, lipase within normal limits at 27. RADIOLOGY: Chest x-ray shows unchanged moderate right pleural effusion with adjacent atelectasis versus consolidation. ASSESSMENT: 1. Right upper quadrant abdominal pain with nausea and vomiting, history of cholelithiasis. 2. Recent treatment for right lower lobe pneumonia with 5 days of Levaquin which started on 03/03/18. 3. Hypertension. 4. Neurofibromatosis. 5. Gastroesophageal reflux disease. 6. Seasonal allergies. 9. History of migraine headaches. PLAN: A gallbladder sonogram has already been ordered and does not reflect any cholecystitis. There is cholelithiasis, however, no indication of an acute infectious process. On the gallbladder sonogram, the fluid in the right pleural space was also evaluated and noted to be moderate. Dr. Snow was consulted and I discussed with him. At this point, it does not appear the gallbladder is the culprit behind this nausea and vomiting and acute infectious process, although at some point, the gallbladder will need to come out. Given the fact that the patient has continued right pleural effusion which appears worse now than it did on 03/03/18, I feel this is due to a pneumonia process. CT scan is down at this time at the hospital, so we will plan on doing at CT scan of the chest once again in the morning once the CT scanner is repaired. Also would consider thoracentesis to evaluate what kind of fluid we are dealing with. In the meantime, I will give her IV Lasix as she takes a diuretic, chlorthalidone, in her blood pressure medicine at home. She also has increased edema. She would benefit from echocardiogram if this is a transudate fluid. This can be done as an outpatient, however. #[id number] [facility]
[2018-03-13] MEDS ORDERED: TEMAZEPAM 15 MG CAP PO PRN (20:19)
[2018-03-13] MEDS: traMADol HCL 50 MG TAB PO PRN (20:26)
[2018-03-13] MEDS ORDERED: levoFLOXacin 500MG IV 500 MG in PREMIX BAG 1 BAG IVPB SCH (21:00)
[2018-03-13] MEDS ORDERED: MAGNESIUM HYDROXIDE 30 ML UD PO PRN (21:26)
[2018-03-14] MEDS: ONDANSETRON INJ 4 MG/2 ML VIAL IV PRN (02:20)
[2018-03-14] MEDS: KCL 20MEQ/D5 1/2NS 1,000 ML IVS PRN ×2 (06:29→20:56)
[2018-03-14] MEDS ORDERED: ONDANSETRON 4 MG TAB PO PRN (08:52)
[2018-03-14] MEDS: traMADol HCL 50 MG TAB PO PRN ×2 (09:15→23:07)
[2018-03-14] MEDS: SODIUM CHLORIDE 0.9% (FLUSH) 10 ML SYG IV SCH ×2 (09:18→22:39)
[2018-03-14] MEDS ORDERED: PROMETHAZINE HCL 25 MG TAB PO PRN (10:00)
[2018-03-14] MEDS ORDERED: SODIUM CHL 0.9% 50ML MIN-BAG+ 50 ML IVPB ONE ×2 (10:12→19:46)
[2018-03-14] MEDS ORDERED: CEFEPIME 2 GM VIAL ONE ×2 (10:12→19:47)
[2018-03-14] MEDS: ATENOLOL 25 MG TAB PO SCH (10:21)
[2018-03-14] MEDS: CHLORTHALIDONE 25 MG TAB PO SCH (10:21)
--- NOTE | 2018-03-14 10:30 | RAD ---
EXAM DESCRIPTION: Chest,2 Views CLINICAL HISTORY: follow up on effusion COMPARISON: Chest radiograph dated March 13, 2018 TECHNIQUE: PA and lateral views of the chest FINDINGS: Cardiac silhouette is at the upper limits of normal heart size. Pulmonary vascularity is within normal limits. Redemonstration of unchanged moderate right-sided pleural effusion with adjacent atelectasis and/or consolidation. Fluid is again seen in the right minor fissure. Previously seen oval-shaped opacity in the right midlung is not significantly changed compared to March 13, 2018. Lungs shows no confluent infiltrates. There is no pneumothorax. No acute osseous abnormality. IMPRESSION: 1. Overall, unchanged chest radiograph compared to March 13, 2018. 2. Redemonstration of unchanged moderate right-sided pleural effusion with adjacent atelectasis and/or consolidation. Fluid is again seen in the right minor fissure. 3. Previously seen oval-shaped opacity in the right midlung is not significantly changed compared to March 13, 2018. Electronically signed by: Nicolás Rangel MD 03/14/2018 10:28 AM [facility]
[2018-03-14] MEDS: FUROSEMIDE INJ 20 MG/2 ML VIAL IV SCH ×2 (10:59→16:18)
[2018-03-14] MEDS: CEFEPIME 2 GM in SODIUM CHL 0.9% 50ML MIN-BAG+ 50 ML IVPB SCH ×2 (10:59→22:39)
[2018-03-14] MEDS: levoFLOXacin 750MG IV 750 MG in PREMIX BAG 1 BAG IVPB SCH (13:05)
[2018-03-14] MEDS: FLUoxetine HCL 20 MG CAP PO SCH (16:17)
--- NOTE | 2018-03-14 16:22 | PN ---
SUPERVISING PHYSICIAN: Jeffery Morocho MD DATE: 03/14/18 SUBJECTIVE: The patient states she had a little bit of nausea and vomiting last night. I do not see anything in the bag and the nurses state that they did not witness her vomiting, however, they have given her some Zofran. She also is getting up and taking quite a few showers. She says that relaxes her muscles. She remains afebrile with stable vital signs. OBJECTIVE: VITAL SIGNS: Blood pressure 1537/84. Heart rate 71. Respiratory rate 16. Temperature 98.6. Oxygen saturation 98%. GENERAL: Ms. Sun is a 42-year-old female in no active distress currently. NEUROLOGIC: The patient is alert and oriented. LUNGS: Diminished in the right base, otherwise clear to auscultation bilaterally. CARDIOVASCULAR: Regular rate and rhythm. Normal S1, S2. ABDOMEN: Soft, obese. Positive bowel sounds. Still with right upper quadrant tenderness to palpation. EXTREMITIES: Lower extremities with 2+ pitting edema. LABORATORY: There is improvement in the white count to 14.8 from 16, stable hemoglobin. Sodium 137, potassium 3.7, chloride 108, CO2 of 21, BUN 8, creatinine 0.59, glucose 146, calcium 8.0. RADIOLOGY: Chest x-ray was done this morning which still reflects the right pleural effusion and there is also some fluid minor fissure. ASSESSMENT: 1. Right upper quadrant abdominal pain with nausea and vomiting with history of cholelithiasis. 2. Recent right lower lobe pneumonia with 5 days of Levaquin back on 03/03/18. 3. Hypertension. 4. Neurofibromatosis. 5. Gastroesophageal reflux disease. 6. Seasonal allergies. 9. History of migraine headaches. PLAN: At this point, there does not appear to be a lot of changes in the pleural effusion. I did give her a 20 mg dose of Lasix yesterday and today I am going to put her on scheduled doses twice a day of Lasix. At this point, CT is still down, it should be up tomorrow morning per report. She is still awaiting a CT scan of the chest to better evaluate this and insure that it is not an empyema. I discussed with Dr. Snow and he does feel like she needs to be diuresed to see if there is any reduction in the pleural effusion. We still cannot rule out that this is an infectious process. Will reevaluate her chest x-ray and labs in the morning as well. [facility][id number] [facility]
[2018-03-15] MEDS: KCL 20MEQ/D5 1/2NS 1,000 ML IVS PRN (05:50)
--- NOTE | 2018-03-15 07:20 | RAD ---
EXAM: Single view chest. INDICATION: Pleural effusion. COMPARISON: Chest x-ray: 03/14/2018. FINDINGS: There is mild worsening of the moderate right pleural effusion and right basilar airspace opacity. The left lung is clear. The heart size is stable. There is no pneumothorax. The bones are unchanged. IMPRESSION: Mild worsening of the moderate right pleural effusion and right basilar airspace opacity Electronically signed by: Agus Hennessy MD 03/15/2018 7:19 AM RN SURGICAL PCU Workstation: [id number]
[2018-03-15] MEDS: traMADol HCL 50 MG TAB PO PRN ×3 (08:13→21:39)
[2018-03-15] MEDS: FUROSEMIDE INJ 20 MG/2 ML VIAL IV SCH ×2 (08:14→16:46)
[2018-03-15] MEDS: FLUoxetine HCL 20 MG CAP PO SCH (08:14)
[2018-03-15] MEDS: SODIUM CHLORIDE 0.9% (FLUSH) 10 ML SYG IV PRN ×2 (08:14→16:45)
[2018-03-15] MEDS: CHLORTHALIDONE 25 MG TAB PO SCH (08:14)
[2018-03-15] MEDS: ATENOLOL 25 MG TAB PO SCH (08:14)
[2018-03-15] MEDS: SODIUM CHLORIDE 0.9% (FLUSH) 10 ML SYG IV SCH ×2 (08:51→23:27)
[2018-03-15] MEDS ORDERED: SODIUM CHL 0.9% 50ML MIN-BAG+ 50 ML IVPB ONE ×2 (10:29→20:05)
[2018-03-15] MEDS ORDERED: CEFEPIME 2 GM VIAL ONE ×2 (10:29→20:06)
[2018-03-15] MEDS: CEFEPIME 2 GM in SODIUM CHL 0.9% 50ML MIN-BAG+ 50 ML IVPB SCH ×2 (11:01→23:28)
[2018-03-15] MEDS ORDERED: POTASSIUM CHLORIDE 20 MEQ TAB PO ONE (11:52)
[2018-03-15] MEDS: levoFLOXacin 750MG IV 750 MG in PREMIX BAG 1 BAG IVPB SCH (12:04)
--- NOTE | 2018-03-15 17:06 | PN ---
DATE: 03/15/18 SUPERVISING PHYSICIAN: Jeffery Morocho M.D. SUBJECTIVE: The patient is lying in bed. She has no complaints. She said there is only minimal pain on the right side of her abdomen, but it has improved greatly since her admission. She tolerated her low fat diet without any problems. We discussed discharge on a low fat diet as well as with some oral antibiotics. She said she spoke to Dr. Snow at length about her condition as well as her plan of care. Denies shortness of breath, chest pain, nausea, vomiting, constipation or diarrhea. OBJECTIVE: VITAL SIGNS: Temperature 98, heart rate 55, blood pressure 113/73, respiratory rate 18, O2 sat 96% on room air. RESPIRATORY: Essentially clear to auscultation bilaterally. She is slightly diminished at the bases. CARDIAC: Regular rate and rhythm. GASTROINTESTINAL: Abdomen is soft, nondistended. It is mildly tender to that right lateral upper abdomen area. No rebound tenderness or guarding. Bowel sounds are positive. NEUROLOGIC: She is awake, alert and oriented times three. LABORATORY: WBCs are 12,000 with hemoglobin 11.7, hematocrit 36.1. Potassium is slightly low at 3.3 with glucose 110, serum osmolality 270.2. Calcium 8. Liver enzymes are basically within normal limits. Blood cultures show no growth after 48 hours. Chest x-ray showed mild worsening of the moderate right pleural effusion and right basilar airspace opacity. All other labs and films have been reviewed via the EMR. ASSESSMENT: 1. Right upper quadrant abdominal pain with nausea and vomiting with history of cholelithiasis. 2. Recent right lower lobe pneumonia with 5 days of Levaquin back on 03/03/18. 3. Hypertension. 4. Neurofibromatosis. 5. Gastroesophageal reflux disease. 6. Seasonal allergies. 9. History of migraine headaches. PLAN: We will continue present supportive care. Dr. Snow was somewhat concerned that the pleural effusion may be slightly worsened. We have stopped her IV fluids and continued on her Lasix. I have also given her some potassium replacement. We may need to do a CT of her chest tomorrow but I will discuss that with Dr. Snow at that point. Her diet was advanced to low fat and she seems to be tolerating that without any problems. I have repeated her lab and a chest x-ray for tomorrow. At this point if the pleural effusion does not worsen and her clinical condition continues to improve, she may be discharged home on a low fat diet as well as antibiotics. She will followup with Dr. Snow as an outpatient. Will probably need to send her home on some Lasix as well as she will need close followup with her primary care physician, Meron Hummel. Otherwise will continue to monitor and follow as needed. #[id number] [facility]
[2018-03-16] MEDS: IV SET AND CAP CHANGE INJ INJ SCH (04:58)
[2018-03-16] MEDS ORDERED: SODIUM CHL 0.9% 50ML MIN-BAG+ 50 ML IVPB ONE (07:33)
[2018-03-16] MEDS ORDERED: CEFEPIME 2 GM VIAL ONE (07:34)
--- NOTE | 2018-03-16 07:47 | RAD ---
EXAM DESCRIPTION: Chest,2 Views CLINICAL HISTORY: pna COMPARISON: Previous study March 15, 2018 TECHNIQUE: PA/lateral FINDINGS: Abnormal density is seen in the right mid and lower lung zones thought to be a combination of infiltrate and pleural fluid. Findings are consistent with pneumonia with parapneumonic effusion. The left lung is clear. Heart size is normal with normal pulmonary vascularity. Findings on frontal view are stable compared to the previous study. Lateral view shows intact sternum and T-spine. Increased density over the lower T-spine on the frontal view compared to previous study. IMPRESSION: Findings most consistent with right upper lobe and right lower lobe pneumonia with parapneumonic effusion. Electronically signed by: Thom Belle MD 03/16/2018 7:45 AM [employer]
[2018-03-16] MEDS: CHLORTHALIDONE 25 MG TAB PO SCH (08:39)
[2018-03-16] MEDS: FUROSEMIDE INJ 20 MG/2 ML VIAL IV SCH (08:39)
[2018-03-16] MEDS: FLUoxetine HCL 20 MG CAP PO SCH (09:13)
[2018-03-16] MEDS: traMADol HCL 50 MG TAB PO PRN (09:13)
[2018-03-16] MEDS: SODIUM CHLORIDE 0.9% (FLUSH) 10 ML SYG IV SCH (10:31)
[2018-03-16] MEDS: ATENOLOL 25 MG TAB PO SCH (10:31)
[2018-03-16 11:08] VITALS: O2SAT 94
[2018-03-16] MEDS: CEFEPIME 2 GM in SODIUM CHL 0.9% 50ML MIN-BAG+ 50 ML IVPB SCH (12:39)
[2018-03-16] MEDS: levoFLOXacin 750MG IV 750 MG in PREMIX BAG 1 BAG IVPB SCH (13:00)
[2018-03-16 13:39] VITALS: BP 97/65; TEMP 97.6
--- NOTE | 2018-03-16 20:04 | DS ---
SUPERVISING PHYSICIAN: Jeffery Morocho M.D. DISCHARGE DIAGNOSIS: 1. Right upper quadrant abdominal pain with nausea and vomiting with history of cholelithiasis. 2. Recent right lower lobe pneumonia with 5 days of Levaquin back on 03/03/18. 3. Hypertension. 4. Neurofibromatosis. 5. Gastroesophageal reflux disease. 6. Seasonal allergies. 9. History of migraine headaches. HISTORY OF PRESENT ILLNESS: This is a 42 year-old female patient who presented to the Emergency Room on the day of admission due to nausea and vomiting since the prior Tuesday. On 03/03/18, the patient was seen in the Emergency Room for similar symptoms and was diagnosed with right-sided pneumonia and was given 5 days of Levaquin. During her course of antibiotics, she no longer had any nausea or vomiting but had some right-sided back and right upper quadrant abdominal pain, but it was very mild. She completed her antibiotics and said the nausea and vomiting came back after she completed her antibiotics to the point she had to come to the hospital due to the worsening of the symptoms. In September of 2017 she was diagnosed with gallstones and the only upper respiratory symptoms that she had had prior to coming to the Emergency Room was a dry cough. Her vital signs were a temperature of 97.5 with heart rate of 80, blood pressure 165/102, respiratory rate 20 and 02 saturation 99% on room air. Her laboratory shows WBC of 14,000 with hemoglobin of 12.4 and hematocrit of 38.1. She had a left shift on her differential. Her electrolytes are basically within normal limits with a slightly elevated glucose of 125. Lipase was 22 and liver enzymes were all within normal limits. Urinalysis showed a cloudy appearance with a trace of intact blood, small amount of bilirubin and 2+ urine bacteria. The patient given Levaquin in the Emergency Room as well as some Zofran and some promethazine. She was also given a liter of sodium chloride as well as Carafate suspension. I was called for admission to the hospital. HOSPITAL COURSE: She was admitted to the hospital and we continued some Levaquin. Flagyl was added at that time. A gallbladder sonogram were ordered. The impression was: 1) Cholelithiasis and tenderness with transducer pressure over the gallbladder that could indicate cholecystitis. Common bile duct was normal caliber. 2) Right pleural effusion. 3) 1.8 circumscribed echogenic lesion in the right liver most likely hemangioma. Can be followed-up with triple phase CT scan or MRI scan without and with gadolinium IV contrast and hemangioma protocol. 4) Normal caliber of the abdominal aorta and IVC. Mild cortical thinning of the right kidney, otherwise negative. Dr. Snow was consulted and he felt that she had cholelithiasis with no signs of acute cholecystitis as well as pneumonia with pleural effusion. She was given diuretics and Cefepime was added to the antibiotics. He recommended that we follow the pleural effusion. Her symptoms lessened. She continued to have no further upper respiratory symptoms and the nausea and vomiting subsided. Initially they had planned to do a CT scan but the CT scanner was down. She was given Lasix in addition to the Chlorthalidone that is in her blood pressure medicine. Chest x-ray continued to show an unchanged radiograph and actually the pleural effusion worsened slightly yesterday with moderate right pleural effusion. She was diuresed. Her fluids were stopped. She was diuresed about 3 liters. Today, she has a hemoglobin 1 liter balance in her I and O. Her chest x-ray this morning showed findings most consistent with right upper lobe and right lower lobe pneumonia with parapneumonic effusion. It was felt to be somewhat smaller than the previous day's x-ray. WBCs are now at 11.8. Her differential is normal. Her CMP is basically unremarkable today. Preliminary blood cultures show no growth after 3 days. She will be discharged home in stable condition. DISCHARGE PLAN: The patient will be discharged home in stable condition. She is to resume her previous medications. I have not continued her Lasix at this time as she will have close followup with Dr. Pereyra at [facility] on 03/21/18 at 3:00 PM. She is to competed 5 days of Levaquin as well as 5 days of Cefdinir. She is to come to the hospital on 03/20/18 for a chest x- ray and some lab work prior to her appointment with Dr. Pereyra on the . She will need to followup with Dr. Snow for her gallstones and if the pleural effusion has worsened, she will also need close followup with Dr. Snow for the possibility of doing a thoracentesis. She is to resume her previous activity, increase as tolerated and to return to the hospital or followup with Dr. Pereyra for any problems or complications. DISCHARGE MEDICATIONS: 1. Prozac. 2. Atenolol/Chlorthalidone. 3. Promethazine. 4. Ranitidine. 5. Cefdinir. 6. Levaquin. [facility][id number] [facility]
== END 2018-03-16 16:00 | disposition home or self-care (01) | DRG 194 ==
LOC: ER 17:11 → MS 23:13 → OBSVTOIN 23:13
PROVIDERS: ADMIT Nurse Practitioner Acute Care; ATTEND Nurse Practitioner Acute Care
DX: J18.9 Pneumonia, unspecified organism (principal); J91.8 Pleural effusion in other conditions classified elsewhere; K80.20 Calculus of gallbladder without cholecystitis without obstruction; I10 Essential (primary) hypertension; J45.909 Unspecified asthma, uncomplicated; F32.9 Major depressive disorder, single episode, unspecified; G89.29 Other chronic pain; M54.9 Dorsalgia, unspecified; K21.9 Gastro-esophageal reflux disease without esophagitis; E86.0 Dehydration; F17.210 Nicotine dependence, cigarettes, uncomplicated; Q85.00 Neurofibromatosis, unspecified; Z88.0 Allergy status to penicillin; Z88.1 Allergy status to other antibiotic agents; Z88.5 Allergy status to narcotic agent

== ENCOUNTER → 2018-03-20 | Outpatient (CLI) | payer SELFPAY ==
--- NOTE | 2018-03-20 09:56 | RAD ---
EXAM DESCRIPTION: Chest,2 Views CLINICAL HISTORY: Lobar pneumonia COMPARISON: Previous study March 16, 2018 TECHNIQUE: PA/lateral FINDINGS: Compared to previous study, pulmonary infiltrate is less dense consistent with interval improvement. The right pleural effusion appears stable in size. Pneumonia with parapneumonic effusion would be considered most likely. Left lung remains clear. Heart size is normal with normal pulmonary vascularity. Bones are unremarkable. IMPRESSION: Improving pulmonary infiltrates. Moderate right pleural effusion unchanged. Electronically signed by: Thom Belle MD 03/20/2018 9:[address] [facility]
== END ==
LOC: LAB.O 09:05
PROVIDERS: ATTEND Nurse Practitioner Acute Care
DX: J18.1 Lobar pneumonia, unspecified organism (principal); J90 Pleural effusion, not elsewhere classified

== ENCOUNTER 2018-03-23 10:08 | Outpatient (CLI) | payer SELFPAY ==
--- NOTE | 2018-03-23 11:50 | RAD ---
EXAM DESCRIPTION: Chest,1 View: CR/DR/XR. CLINICAL HISTORY: 42 years Female post thoracentesis COMPARISON: Portable chest 03/20/2018. TECHNIQUE: ONE VIEW PORTABLE. AP 1141 hours, upright position. FINDINGS: Lung volumes to slightly decreased compared to prior chest x-ray. Effusion in the right base. Bibasilar atelectasis more on the right with residual consolidation. No mediastinal widening or pneumothorax. Cardiomegaly stable. Pulmonary vascularity not increased. IMPRESSION: No pneumothorax on the right post thoracentesis. Residual pleural effusion and bilateral atelectasis and residual infiltrate right lower lobe. Electronically signed by: Johnny Tamayo MD 03/23/2018 11:49 AM [employer]
--- NOTE | 2018-03-23 11:54 | US ---
EXAM DESCRIPTION: Thoracentesis: ULTRASOUND. CLINICAL HISTORY: 42 years Female RT PLEURAL EFFUSION COMPARISON: Portable chest x-ray postthoracentesis today showed no complications. TECHNIQUE: Transcutaneous scanning: Alvares-scale and Doppler modes.. 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 Small effusion pocket localized and overlying skin marked for thoracentesis performed by Dr. Snow. Sterile conditions and technique. FINDINGS: Images before and after thoracentesis show reduction of right pleural effusion pocket. Pleural thickening also noted. IMPRESSION: Successful right thoracentesis after ultrasound localization. 525 mL was removed.. Electronically signed by: Johnny Tamayo MD 03/23/2018 11:52 AM OPTICAL SCIENTIST
[2018-03-23 12:19] VITALS: BP 105/78; TEMP 98.4; O2SAT 95
--- NOTE | 2018-03-23 13:27 | OP ---
DATE OF PROCEDURE: 03/23/18 PREOPERATIVE DIAGNOSIS: 1. History of pneumonia. 2. History of right pleural effusion. 3. Right chest pain. 4. Cholelithiasis. POSTOPERATIVE DIAGNOSIS: 1. History of pneumonia. 2. History of right pleural effusion. 3. Right chest pain. 4. Cholelithiasis. PROCEDURE: 1. Sonographically guided right thoracentesis. SURGEON: Vinny Snow MD. MANAGEMENT AIDE: None. ANESTHESIA: Local infiltration of 1% lidocaine. INDICATION: The patient is a 42-year-old female who was hospitalized with right chest pain and noted to have a pleural effusion and consolidation. She also was noted to have gallstones, but had no signs, symptoms or radiologic findings associated with cholecystitis. She was brought to the outpatient department for a sonographically guided thoracentesis for culture and chemistries. FINDINGS: Approximately 525 mL of minesh colored fluid was obtained. PROCEDURE: After the patient was sat up at the bedside with her arms extended over a bedside table, she was examined with the remanufacturing technician and an area was selected. It was then prepped and draped in the usual sterile manner. The ultrasound probe was then placed in a sterile sleeve. Local infiltration of anesthesia was then obtained and a stab wound was then made with the 11 blade. At the first angle, we were unable to identify the pocket along with the catheter, so we moved inferiorly and laterally and made a second incision and were then easily able to guide the catheter into the space with the ultrasound. The catheter was advanced and the needle removed. 60 mL of fluid was obtained. This was used to obtain our cultures and chemistries and these were taken. At this point, the catheter was connected to a suction bottle in the usual manner and placed to suction. When the suction canister stopped, it was reattached to the three-way stopcock and using a 60 mL syringe, approximately another 50 mL of fluid was obtained for the total of 525 mL. The catheter was removed. Pressure was held over the area. It was then cleaned and reexamined to show that the majority of the fluid had been removed. The wound was then dressed by a 4 by 4 and Mefix. The patient tolerated the procedure well. A stat portable chest x- ray was ordered. This was sent for chemistries and culture. #[id number] [facility]
== END 2018-03-23 12:10 | disposition home or self-care (01) ==
LOC: US 10:08
PROVIDERS: ATTEND Surgery
DX: J91.8 Pleural effusion in other conditions classified elsewhere (principal)

== ENCOUNTER 2018-03-25 07:13 | Observation (INO) | payer SELFPAY ==
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
[2018-03-25] MEDS ORDERED: KETOROLAC TROMETHAMINE INJ 30 MG/ML VIAL IV ONE (08:11)
[2018-03-25] MEDS ORDERED: traMADol HCL 50 MG TAB PO ONE (09:01)
[2018-03-25] MEDS: KCL 40MEQ/NS 1,000 ML IVS PRN ×2 (09:41→21:57)
--- NOTE | 2018-03-25 10:07 | CT ---
PROCEDURE: CT Abdomen and Pelvis Without Intravenous Contrast CLINICAL INDICATION: The patient is 42 years old and is Female; abdominal pain TECHNIQUE: Axial computed tomography images of the abdomen and pelvis without intravenous contrast. Sagittal and coronal reformatted images were created and reviewed. As a consequence of the lack of intravenous contrast, there is limited evaluation of the organs and soft tissues. This CT exam was performed using one or more of the following dose reduction techniques: automated exposure control, adjustment of the mA and/or kV according to patient size, and/or use of iterative reconstruction technique. COMPARISON: Ultrasound abdomen from 10/12/2017. CTA chest from 03/03/2018. FINDINGS: LUNG BASES: Unremarkable. No mass. No consolidation. ABDOMEN: LIVER: Unremarkable noncontrast appearance of the liver. GALLBLADDER AND BILE DUCTS: The gallbladder is completely filled with calcified gallstones. It is not inflamed. No ductal dilation. PANCREAS: Unremarkable. No ductal dilation. SPLEEN: Unremarkable. No splenomegaly. No splenic lesion noted. ADRENALS: Unremarkable. No mass. KIDNEYS AND URETERS: There is no evidence of nephrolithiasis or ureteral obstruction bilaterally on this noncontrast CT. STOMACH AND BOWEL: There is no evidence of diverticulitis. There is no evidence of bowel obstruction. There is No oral contrast opacifying the bowel. There is an abundant amount of stool within the colonic lumen. The cecum is low lying. PELVIS: APPENDIX: The appendix is visualized and is normal in appearance. BLADDER: The urinary bladder is underdistended. No stones. 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 There is a leiomyomatous uterus. ABDOMEN and PELVIS: INTRAPERITONEAL SPACE: Unremarkable. No free air. No significant fluid collection. BONES/JOINTS: No acute fracture. SOFT TISSUES: There is rectus diastases of the anterior abdominal wall. VASCULATURE: Unremarkable. No abdominal aortic aneurysm. LYMPH NODES: Unremarkable. No significant retroperitoneal or pelvic lymphadenopathy. IMPRESSION: 1. A separate CT of the chest will be performed concomitantly and interpreted independently. This will describe the worsening process at the RIGHT lung base. 2. The gallbladder is completely filled with calcified gallstones. It is not inflamed. 3. There is no evidence of nephrolithiasis or ureteral obstruction bilaterally on this noncontrast CT. Electronically signed by: Max Lewis MD 03/25/2018 10:04 AM FURNITURE REPAIRER
--- NOTE | 2018-03-25 10:15 | RAD ---
PROCEDURE: XR Chest, 2 Views CLINICAL INDICATION: The patient is 42 years old and is Female; shortness of breath TECHNIQUE: Frontal and lateral views of the chest. COMPARISON: Comparison is made to the prior study dated two days earlier. FINDINGS: LUNGS: Far more extensive consolidation is identified at the RIGHT lung base. The LEFT lung is clear. Pulmonary vascularity is normal. PLEURAL SPACE: There is NO pneumothorax. There are no pleural effusions noted on the LEFT. HEART: The heart size is normal. MEDIASTINUM: The mediastinal contour is unremarkable. BONES/JOINTS: No acute abnormality. IMPRESSION: Far more extensive consolidation is identified at the RIGHT lung base. This is compatible with worsening necrosis, effusion and pneumonia. Electronically signed by: Max Lewis MD 03/25/2018 10:13 AM PATTERN CHAIN MAKER SUPERVISOR
--- NOTE | 2018-03-25 10:33 | CT ---
PROCEDURE: CT Chest Without Intravenous Contrast CLINICAL INDICATION: The patient is 42 years years old, Female; shortness of breath worsening with pneumonia/thora TECHNIQUE: Axial computed tomography images of the chest without intravenous contrast. Sagittal and coronal reformatted images were created and reviewed. This CT exam was performed using one or more of the following dose reduction techniques: automated exposure control, adjustment of the mA and/or kV according to patient size, and/or use of iterative reconstruction technique. COMPARISON: No relevant prior studies available. FINDINGS: LUNGS: There is a wedge-shaped area of opacification in the right upper lobe measuring up to 5.7 cm x 4.8 cm. There is minimal scattered discoid as well as minimal dependent atelectasis bilaterally. Tiny peripheral blebs suggest paraseptal emphysema. Right upper lobe pneumonia in the anterior segment with a small right pleural effusion PLEURAL SPACE: There is minimal right pleural fluid. There is no left pleural fluid or pneumothoraces. HEART: See below. MEDIASTINUM: There is mild mural thickening in the distal esophagus. This may reflect nondistention and/or esophagitis. Neoplasia less likely but also in the differential. THYROID: The visualized thyroid appears prominent with the isthmus measuring up to 1.4 cm AP, the right lobe measuring up to 3.6 cm AP and the left lobe measuring up to 1.2 cm AP. Thyromegaly. BONES/JOINTS: There are no discernible acute fractures or areas of osseous destruction or osteoblastic lesions. SOFT TISSUES: Unremarkable. VASCULATURE: Evaluation of the pulmonary arterial vessels demonstrates no CT evidence of acute pulmonary embolus. There is no evidence of right to left interventricular septal bowing. No evidence of aortic aneurysm or dissection. LYMPH NODES: Unremarkable. There is no evidence of hilar, mediastinal or axillary adenopathy. LIVER: A 0.8 cm calcific density adjacent to the liver hilum could be a calculus in the gallbladder. OTHER FINDINGS: The remainder of the visualized upper abdominal viscera are unremarkable. IMPRESSION: 1. No evidence of acute pulmonary emboli or aortic aneurysm/dissection. 2. A 0.8 cm calcific density adjacent to the liver hilum could be a calculus in the gallbladder. 3. Atelectasis and or pneumonia in the anterior segment of the right upper lobe as well as a small right pleural effusion. Electronically signed by: Yee Agosto MD 03/25/2018 10:30 AM [facility]
[2018-03-25] MEDS ORDERED: VANCOMYCIN HCL INJ 1,000 MG in SODIUM CHLORIDE 0.9% 250ML 250 ML IVPB ONE (10:47)
--- NOTE | 2018-03-25 11:16 | HP ---
CHIEF COMPLAINT: Right sided rib pain. HISTORY OF PRESENT ILLNESS: Ms. Sun is a pleasant 42 year-old female who resides here in [place], who came to the . with ongoing right sided rib pain, possible flank pain. For the past several weeks she has had problems with pneumonia on the right side. On March 03, the patient was seen in the Emergency Room, diagnosed with pneumonia, and treated with 5 days of p.o. Levaquin. Upon completion, she started feeling poorly, and on the had greatly worsened shortness of breath and needed further evaluation. She was found to have a right sided pleural effusion, admitted to the hospital and started on antibiotics and Surgery was consulted. The effusion was not tapped, but she progressed well with antibiotics and discharged home. The patient returned to the hospital on March 23, and underwent a thoracentesis to drain the pleural effusion. She did well until yesterday, and pain slowly got worse. She woke this morning and had severe pain in her lower right ribs. She denies any fevers whatsoever, and no chills. She also denied any episodes of coughing up blood, but does endorse that her blood tastes copper-tinged. PAST MEDICAL HISTORY: 1. Hypertension. 2. Anxiety and depression on treatment. 3. Neurofibromatosis. 4. History of tobacco use. PAST SURGICAL HISTORY: 1. Thoracentesis 03/23/2018. CURRENT MEDICATIONS: 1. Atenolol/Chlorthalidone 50-25 mg p.o. daily. 2. Fluoxetine 40 mg daily p.o. 3. Potassium chloride 10 mEq p.o. daily. 4. Ranitidine 75 mg p.o. daily. 5. Tramadol 50 mg p.o. every 6 hours p.r.n. pain. 6. Phenergan tablet 25 mg every 4 hours p.r.n. nausea or vomiting. ALLERGIES: CODEINE, DOXYCYCLINE, PENICILLINS. FAMILY HISTORY: Positive for diabetes, hypothyroid and CVA in a grandmother. Other family members unknown. SOCIAL HISTORY: The patient lives here in town with partner. Smoking history of 15 years at half a pack per day, quit 2 weeks ago. She denies alcohol or illicit drug use. REVIEW OF SYSTEMS: Negative for fevers, chills. HEENT: She denies any congestion, headaches or sore throat. RESPIRATORY: A cough is present, nonproductive. Denies hemoptysis, pleuritic type chest pains on the right side. CARDIOVASCULAR: No anterior or posterior chest pain, only on the lower right ribs. No palpitations or peripheral edema. GASTROINTESTINAL: No abdominal pains, no nausea or vomiting, normal bowel movements. GENITOURINARY: Normal urinary function, no burning. MUSCULOSKELETAL: Sore to the right ribs, when moving or coughing. SKIN: Negative for any major rashes, lumps noticeable on the back from neurofibromatosis, no sign of infections. NEUROLOGIC: No confusion or dizziness, no headaches. PHYSICAL EXAMINATION: VITAL SIGNS: Temperature 97.9 Fahrenheit, pulse 77 [id number], blood pressure 104/71, respiratory rate 18, O2 sat 95% on room air. GENERAL: The patient is sitting up in bed, with mild discomfort due to pain in the right side of the chest. HEENT: Extraocular movements are intact, normal eyes, normocephalic and atraumatic. CHEST: Normal rate and rhythm, no murmurs, tender to palpation over the right anterior and lateral costal borders, no tenderness over the sternum. ABDOMEN: Obese, soft throughout, with mild tenderness to the right upper quadrant close to the rib line. NEUROLOGIC: She is alert and oriented, cranial nerves grossly intact, no deficits observed. LABORATORY: White blood cell 15.4, hemoglobin 13.4, hematocrit 41.0, platelets 271. Slightly increased RDW with a slight increase in the amount of neutrophils. Sodium 133, potassium 2.7, chloride 95, carbon dioxide 27, BUN and creatinine 13/0.7, lactic acid normal at 1.1. Total bilirubin slightly high at 1.2, AST 20, ALT 25, alkaline phosphatase 110. Amylase 25, lipase 23. IMAGING: Abdomen/pelvis CT: Gallbladder completely filled with calcified stones, not inflamed. There is no evidence of nephrolithiasis or ureteral obstruction. Chest x-ray: More extensive consolidation is identified at the right lung base. "This is compatible with worsening necrosis, effusion and pneumonia." Chest CT: No evidence of pulmonary emboli or aortic aneurysm/dissection. 0.8 cm calcific density adjacent to the liver hilum could be a calculus near the gallbladder. Atelectasis and/or pneumonia in the anterior segment of the right upper lobe as well as a small right pleural effusion. ASSESSMENT: 1. Right lower lobe pneumonia, recurrent. 2. History of thoracentesis with right pleural effusion. 3. Hypokalemia. 4. Leukocytosis. 5. Obesity. 6. Hypertension. 7. Anxiety and depression. 8. History of neurofibromatosis. PLAN: The patient is going to be placed in observation overnight in order to allow time for a bed to open up at [facility] in [place]. The patient tolerated Levaquin and Cefepime in the past, thus we will start vancomycin and Cefepime this admission, at the request of broad spectrum antibiotics from [facility]. We will monitor her respiratory status, give oxygen as needed. From a respiratory standpoint she is stable and doing well. We will start a regular diet and monitor with labs, as well as other lab abnormalities. We will restart her home medications once these have been finalized. Each day for the next couple of days we will call [facility] to assess for possible transfer at their request. We will put her on DVT prophylaxis per protocol at this time. #[id number] [facility]
[2018-03-25] MEDS ORDERED: VANCOMYCIN HCL INJ 1,000 MG VIAL IVPB ONE ×3 (11:27→19:58)
[2018-03-25] MEDS ORDERED: SODIUM CHLORIDE 0.9% 250ML 250 ML ONE ×3 (11:27→19:57)
[2018-03-25] MEDS ORDERED: SODIUM CHLORIDE 0.9% (FLUSH) 10 ML SYG IV PRN (11:37)
[2018-03-25] MEDS ORDERED: SODIUM CHLORIDE 0.9% IVPB SCH (12:00)
[2018-03-25] MEDS ORDERED: IV SET AND CAP CHANGE INJ INJ SCH (12:00)
[2018-03-25] MEDS ORDERED: CEFEPIME 2 GM in SODIUM CHL 0.9% 50ML MIN-BAG+ 50 ML IVPB SCH (12:00)
[2018-03-25] MEDS ORDERED: VANCOMYCIN HCL IVPB SCH (12:00)
[2018-03-25] MEDS ORDERED: VANCOMYCIN PER PHARMACY IVPB SCH (14:00)
[2018-03-25] MEDS ORDERED: SODIUM CHL 0.9% 50ML MIN-BAG+ 50 ML IVPB ONE ×2 (14:13→19:58)
[2018-03-25] MEDS ORDERED: CEFEPIME 2 GM VIAL ONE ×2 (14:14→19:58)
[2018-03-25] MEDS: CEFEPIME 2 GM in SODIUM CHL 0.9% 50ML MIN-BAG+ 50 ML IVPB SCH (14:28)
[2018-03-25] MEDS ORDERED: VANCOMYCIN HCL INJ 500 MG VIAL ONE ×2 (17:09→19:57)
[2018-03-25] MEDS ORDERED: traMADol HCL 50 MG TAB ONE (17:17)
[2018-03-25] MEDS: VANCOMYCIN HCL INJ 1,000 MG, VANCOMYCIN HCL INJ 250 MG in SODIUM CHLORIDE 0.9% 250ML 25... IVPB SCH (17:31)
[2018-03-25] MEDS: ENOXAPARIN SODIUM 40 MG/0.4 ML SYG SUBCU SCH (17:32)
[2018-03-25] MEDS ORDERED: traMADol HCL 50 MG TAB PO SCH (17:40)
[2018-03-25] MEDS ORDERED: PROMETHAZINE HCL 25 MG TAB PO PRN (17:59)
[2018-03-25] MEDS ORDERED: PROMETHAZINE HCL 25 MG TAB PO SCH (18:00)
[2018-03-25] MEDS: IBUPROFEN 200 MG TAB PO PRN (21:52)
[2018-03-25] MEDS ORDERED: KCL 20 MEQ/NS 1,000 ML IVS PRN (21:53)
[2018-03-26] MEDS: CEFEPIME 2 GM in SODIUM CHL 0.9% 50ML MIN-BAG+ 50 ML IVPB SCH (02:06)
[2018-03-26] MEDS: VANCOMYCIN HCL INJ 1,000 MG, VANCOMYCIN HCL INJ 250 MG in SODIUM CHLORIDE 0.9% 250ML 25... IVPB SCH (04:43)
[2018-03-26] MEDS: traMADol HCL 50 MG TAB PO PRN ×2 (05:05→12:31)
--- NOTE | 2018-03-26 07:05 | RAD ---
PROCEDURE: XR Chest, 2 Views CLINICAL INDICATION: The patient is 42 years old and is Female; Pneumonia TECHNIQUE: Frontal and lateral views of the chest. COMPARISON: Prior study from one day earlier. FINDINGS: LUNGS: Continued worsening of RIGHT lung base and RIGHT middle lobe pneumonia sparing the upper lobe. Pulmonary vascularity is normal. PLEURAL SPACE: There is NO pneumothorax. There is continued moderate to large RIGHT pleural effusion. HEART: The heart size is enlarged. MEDIASTINUM: The mediastinal contour is unremarkable. BONES/JOINTS: No acute abnormality. IMPRESSION: Continued worsening of RIGHT lung base and RIGHT middle lobe pneumonia sparing the upper lobe. Electronically signed by: Max Lewis MD 03/26/2018 7:02 AM [employer]
[2018-03-26] MEDS ORDERED: POTASSIUM CHLORIDE 10 MEQ TAB PO SCH (07:30)
[2018-03-26] MEDS: POTASSIUM CHLORIDE 20 MEQ TAB PO SCH ×2 (08:27→12:27)
[2018-03-26] MEDS: ENOXAPARIN SODIUM 40 MG/0.4 ML SYG SUBCU SCH (08:32)
[2018-03-26] MEDS ORDERED: ATENOLOL PO SCH (09:00)
[2018-03-26] MEDS ORDERED: [UNRECOGNIZED DRUG - OTHER] PO SCH (09:00)
[2018-03-26] MEDS ORDERED: CHLORTHALIDONE 25 MG TAB PO SCH (09:00)
[2018-03-26] MEDS ORDERED: CHLORTHALIDONE PO SCH (09:00)
[2018-03-26] MEDS ORDERED: FLUoxetine HCL 20 MG CAP PO SCH (09:00)
[2018-03-26] MEDS ORDERED: ATENOLOL 25 MG TAB PO SCH (09:00)
[2018-03-26] MEDS: IBUPROFEN 200 MG TAB PO PRN (10:09)
[2018-03-26 11:03] VITALS: BP 121/80; TEMP 98.6; O2SAT 97
== END 2018-03-26 13:00 | disposition short-term general hospital (02) ==
LOC: ER 07:13 → INTOOBSV 11:15 → MS 11:15
PROVIDERS: ADMIT Family Medicine; ATTEND Nurse Practitioner Family
DX: J18.1 Lobar pneumonia, unspecified organism (principal); J91.8 Pleural effusion in other conditions classified elsewhere; E87.6 Hypokalemia; D72.829 Elevated white blood cell count, unspecified; E66.9 Obesity, unspecified; I10 Essential (primary) hypertension; F41.9 Anxiety disorder, unspecified; F32.9 Major depressive disorder, single episode, unspecified; Q85.00 Neurofibromatosis, unspecified; K80.20 Calculus of gallbladder without cholecystitis without obstruction; Z98.890 Other specified postprocedural states; Z68.42 Body mass index [BMI] 45.0-49.9, adult; Z87.891 Personal history of nicotine dependence; Z79.899 Other long term (current) drug therapy; Z88.0 Allergy status to penicillin; Z88.3 Allergy status to other anti-infective agents; Z88.6 Allergy status to analgesic agent
CPT/HCPCS: 96366 ×2; 96367; 96365; 96375; 96376 ×2; 96372 ×2; J1885; J7050 ×5; J3370 ×5; J1650 ×2; J0692 ×2; J3480 ×3; 80048; 80053; 36415; 82150; 85025 ×2; 83690; 83605; 71046 ×2; 71250; 74176; 94760 ×2; 99285; G0378

== ENCOUNTER 2018-04-05 11:04 | Emergency (ER) | payer SELFPAY ==
[2018-04-05] MEDS ORDERED: diphenhydrAMINE HCL 50 MG/ML VIAL ONE (11:05)
[2018-04-05] MEDS ORDERED: IPRATROPIUM/ALBUTEROL 3 ML VIAL NEB ONE (11:07)
[2018-04-05] MEDS ORDERED: diphenhydrAMINE HCL 50 MG/ML VIAL IV ONE (11:08)
--- NOTE | 2018-04-05 11:17 | RAD ---
EXAM DESCRIPTION: Chest,1 View CLINICAL HISTORY: recent chest tube COMPARISON: Chest x-ray March 26, 2018. FINDINGS: Portable semiupright view of the thorax was acquired. A right upper extremity PICC line is noted with catheter tip projecting in the mid distal superior vena cava. Loculated fluid collection of the right pleura is again seen with adjacent airspace disease. The appearance is not significantly change since comparison considering differences in technique and position. Heart and mediastinum are stable. No acute osseous pathology is demonstrated. IMPRESSION: Satisfactory position of a right upper extremity PICC line. Stable chest. Electronically signed by: Antonio Jaquez MD 04/05/2018 11:[address] [facility]
[2018-04-05] MEDS ORDERED: ALUM & MAG HYDROX-SIMETHICONE 30 ML, LIDOCAINE VISCOUS 2% 15 ML PO ONE ×2 (11:44)
[2018-04-05] MEDS ORDERED: ACETYLCYSTEIN 20 % 6,000 MG/30 ML VIAL PO ONE (11:45)
[2018-04-05 11:55] VITALS: TEMP 98
[2018-04-05] MEDS ORDERED: LIDOCAINE HCL 2% (MOUTH-THROAT) 15 ML UD ONE (12:00)
[2018-04-05] MEDS ORDERED: ALUM & MAG HYDROX-SIMETHICONE 30 ML UD ONE (12:01)
[2018-04-05] MEDS ORDERED: methylPREDNISolone SODIUM SUC 125 MG/2 ML VIAL IV ONE (12:04)
--- NOTE | 2018-04-05 13:36 | CT ---
EXAM DESCRIPTION: CTA Chest: Computed Tomography. CLINICAL HISTORY: acute onset cp/sob with PICC line. Chest pain and shortness of breath. Recent lung surgery. COMPARISON: CT scan of the chest without IV contrast 11/22/2018. TECHNIQUE: Spiral-axial scans at 2.5 x 2.5 mm intervals through the pulmonary arteries and chest after bolus infusion of IV contrast. Bolus limited due to injection through PICC line. Lung algorithm 1.25-mm axial reconstructions. Coronal and sagittal 2.0 Mm reconstructions. 10.0 mm PE oblique 3-D reformatted images. No adverse reactions. Total Exam DLP: 919.04 mGy-cm. This exam was performed according to our departmental CT dose-optimization program which includes automated exposure control, adjustment of the mA and/or kV according to patient size and/or use of iterative reconstruction technique; to reduce radiation dose to as low as reasonably achievable (ALARA). FINDINGS: Heart and great vessels: IV contrast visualized in the main pulmonary artery to the bilateral segmental pulmonary arteries. No filling defects bilaterally. Contrast density greater in the pulmonary artery system compared to the aortic/pulmonary venous system. Tip of PICC line in the proximal SVC. Normal contour of the thoracic aorta. Lungs and airways: Consolidation and/or atelectasis in the anterior right upper lobe and the medial right upper lobe. Variable enhancement. Thickening also adjacent to the right horizontal fissure and the right major fissure. Consolidation in the lateral right middle lobe and in the base of the right lower lobe. Surgical clips posteriorly abutting the superior right lower lobe. Minimal thickening of the left major fissure. Small parenchymal blebs more numerous in the upper lobes and associated with pleura septa in the fissures consistent with paraseptal process. Pleura and spaces: Thickening of the pleura with loculation and minimal air bubbles. No large pneumothorax. Minimal enhancement but no definitive empyema. Mediastinum and yola: Multiple lymph nodes again seen in the upper mediastinum predominantly on the right with azygous node enlarged and enlarged right hilar and subcarinal nodes. Stable since the prior study. No pneumomediastinum or free fluid. Chest wall and neck base soft tissues: Bilateral small axillary lymph nodes. Heterogeneous enhancement of the thyroid gland unchanged. No new soft tissue masses with minimal edema right lateral, right posterior chest wall and adipose tissue. Upper abdomen: No free air or free fluid. Normal size and enhancement of the spleen and adrenal glands. Multiple gallstones and sludge in the gallbladder. No fatty stranding. Osseous structures: Minimal spondylosis. No lytic or blastic lesions.. IMPRESSION: 1. CTA of the thorax showing no evidence of acute pulmonary embolus. 2. Regions of pneumonia and atelectasis with enhancement adjacent to the surgical site, in the lateral right middle lobe, and in the posterior and lateral right lower lobe. Tiny effusion and pleural thickening right pleura with small air bubbles but no empyema or pneumothorax. Overall improved volume in the right hemithorax since the prior study. 3. Cholelithiasis. 4. Multiple enlarged lymph nodes mediastinum and right hilum, stable since the prior study. Electronically signed by: Johnny Tamayo MD 04/05/2018 1:33 PM [employer]
[2018-04-05] MEDS ORDERED: CIPROFLOXACIN 500 MG TAB PO ONE (14:11)
[2018-04-05] MEDS ORDERED: AZITHROMYCIN IV 500 MG in SODIUM CHLORIDE 0.9% 250ML 250 ML IVPB ONE (14:11)
[2018-04-05] MEDS ORDERED: AZITHROMYCIN IV 500 MG VIAL IVPB ONE (14:18)
[2018-04-05] MEDS ORDERED: SODIUM CHLORIDE 0.9% 250ML 250 ML ONE (14:19)
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
[2018-04-05] MEDS ORDERED: predniSONE 20 MG TAB PO ONE (14:44)
[2018-04-05] MEDS ORDERED: HEPARIN SODIUM 100 U/ML 5 ML SYG IV ONE (16:49)
[2018-04-05 17:09] VITALS: BP 126/89; O2SAT 96
== END 2018-04-05 17:14 | disposition home or self-care (01) ==
LOC: ER 11:04
DX: T78.2XXA Anaphylactic shock, unspecified, initial encounter (principal); R06.03 Acute respiratory distress; T36.1X5A Adverse effect of cephalosporins and other beta-lactam antibiotics, initial encounter; J18.9 Pneumonia, unspecified organism; J45.909 Unspecified asthma, uncomplicated; I10 Essential (primary) hypertension; F41.9 Anxiety disorder, unspecified; F32.9 Major depressive disorder, single episode, unspecified; Z88.5 Allergy status to narcotic agent; Z79.899 Other long term (current) drug therapy; Z88.1 Allergy status to other antibiotic agents; Z88.0 Allergy status to penicillin; Z87.891 Personal history of nicotine dependence
CPT/HCPCS: 36415; 71045; 71275; 80053; 82550; 82553; 83880; 84484; 85025; 93005; 94640; J0456; J1200; J1642; J2930; J7050; J7512; J7620

== ENCOUNTER → 2018-04-27 | Outpatient (CLI) | payer OTHER ==
--- NOTE | 2018-04-27 09:09 | RAD ---
EXAM DESCRIPTION: Chest,2 Views CLINICAL HISTORY: PNEUMONIA COMPARISON: Previous study April 18, 2018 TECHNIQUE: PA/lateral FINDINGS: Right lower lobe pleural parenchymal scarring and/or infiltrate appear unchanged. Right hemidiaphragm is elevated. Heart size is normal with normal pulmonary vascularity. No pleural effusion or pneumothorax. Lungs are clear with no consolidating infiltrate. Lateral view shows intact sternum and T-spine. Fissural thickening on the lateral view is unchanged. IMPRESSION: Unchanged appearance of the chest. Electronically signed by: Thom Belle MD 04/27/2018 9:06 AM CDT
== END ==
LOC: RAD 08:22
PROVIDERS: ATTEND Internal Medicine Infectious Disease
DX: J18.9 Pneumonia, unspecified organism (principal)

== ENCOUNTER 2018-06-14 08:51 | Emergency (ER) | payer OTHER ==
[2018-06-14] MEDS ORDERED: MECLIZINE HCL 12.5 MG TAB PO ONE (09:27)
[2018-06-14] MEDS ORDERED: predniSONE 20 MG TAB PO ONE (09:27)
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
[2018-06-14 11:02] VITALS: BP 100/72; TEMP 96.9; O2SAT 95
== END 2018-06-14 10:50 | disposition home or self-care (01) ==
LOC: ER 08:51
DX: H83.01 Labyrinthitis, right ear (principal); J45.909 Unspecified asthma, uncomplicated; I10 Essential (primary) hypertension; F32.9 Major depressive disorder, single episode, unspecified; F41.9 Anxiety disorder, unspecified; Z87.891 Personal history of nicotine dependence; Z79.899 Other long term (current) drug therapy; Z88.5 Allergy status to narcotic agent; Z88.1 Allergy status to other antibiotic agents; Z88.0 Allergy status to penicillin

== ENCOUNTER 2018-06-20 20:27 | Emergency (ER) | payer OTHER ==
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
--- NOTE | 2018-06-20 21:43 | CT ---
EXAM DESCRIPTION: Head CLINICAL HISTORY: 42 years Female fall/hematoma/pain COMPARISON: None TECHNIQUE: Images were obtained in axial, sagittal, and coronal planes. This exam was performed according to our departmental dose-optimization program which includes use of Automated Exposure Control, adjustment of the mA and/or kV according to patient size and/or use of iterative reconstruction technique. FINDINGS: Ventricular system appears normal. No abnormal areas of increased or decreased attenuation are seen involving the brain parenchyma. No extra-axial fluid collections noted. No evidence for skull fracture. Symmetric aeration mastoid air cells bilaterally. Unremarkable paranasal sinuses. IMPRESSION: No acute intracranial abnormality. No evidence for hemorrhage, mass lesion, or large acute infarction. Electronically signed by: Hattie Cabrera MD 06/20/2018 9:40 PM CDT
--- NOTE | 2018-06-20 21:44 | CT ---
EXAM DESCRIPTION: CT CERVICAL SPINE CLINICAL HISTORY: fall/hematoma/pain COMPARISON: None Available. TECHNIQUE: Contiguous axial images of the cervical spine were obtained followed by reconstruction images.This exam was performed according to our departmental dose-optimization program, which includes automated exposure control, adjustment of the mA and/or kV according to patient size and/or use of iterative reconstruction technique. FINDINGS: Each common carotid artery courses closer to the midline than typical. Attention is recommended if surgery is planned. There is no acute fracture or subluxation. The prevertebral soft tissues are within normal limits. IMPRESSION: No acute fracture or subluxation. Electronically signed by: Johnny Baldwin 06/20/2018 9:42 PM CDT
--- NOTE | 2018-06-20 21:47 | CT ---
EXAM DESCRIPTION: Chest w/o Contrast CLINICAL HISTORY: fall/hematoma/pain COMPARISON: None Available. TECHNIQUE: Contiguous axial images of the chest were obtained from the thoracic inlet up to the upper abdomen followed by reconstruction images. This exam was performed according to our departmental dose-optimization program, which includes automated exposure control, adjustment of the mA and/or kV according to patient size and/or use of iterative reconstruction technique. FINDINGS: There is scattered atelectasis in both lungs, right greater than left. There is scar in the right lung. A few tiny calcifications are seen in the right posterior lung. The aorta is of normal contour and tapering. There is no pericardial or pleural fluid collection. There is no pneumothorax. No other acute abnormality. IMPRESSION: Atelectasis and scar predominantly in the right lung. Electronically signed by: Johnny Baldwin 06/20/2018 9:45 PM CDT
--- NOTE | 2018-06-20 21:48 | CT ---
EXAM DESCRIPTION: Abdoment/Pelvis w/o Contrast CLINICAL HISTORY: 42 years Female pain COMPARISON: March 25, 2018. TECHNIQUE: Images were obtained in axial, sagittal, and coronal planes. No intravenous contrast was administered. This exam was performed according to our departmental dose-optimization program which includes use of Automated Exposure Control, adjustment of the mA and/or kV according to patient size and/or use of iterative reconstruction technique. FINDINGS: Multiple calcified gallstones within the gallbladder. Appearance unchanged when correlated with the prior study. No abnormality involving the liver, spleen, pancreas, or adrenal glands bilaterally. No obstructing renal calcifications bilaterally. No hydronephrosis bilaterally. Unremarkable bladder. Small bilateral inguinal hernias which contain only mesenteric fat. Lobular appearing uterine fundus likely fibroid change. Uterus appears enlarged. No dilatation abdominal aorta. No adenopathy or abnormal fluid collections seen. Small midline ventral hernia which contains nondilated bowel loops. Previously noted infiltrate and consolidation right lower lobe markedly decreased when correlated with the prior study. Chronic pleural parenchymal changes seen on right. Atelectatic change and chronic change left lower lobe. No acute osseous abnormality. IMPRESSION: Cholelithiasis. Enlarged fibroid uterus. Previously noted right lower lobe infiltrate and consolidation markedly decreased when correlated with the prior study. Minimal chronic change remains. Electronically signed by: Hattie Cabrera MD 06/20/2018 9:46 PM CDT
--- NOTE | 2018-06-20 22:29 | RAD ---
EXAM: XR Left Shoulder Complete, 2 or More Views CLINICAL HISTORY: The patient is 42 years old and is Female; fall with left shoulder pain TECHNIQUE: Two or more views of the left shoulder. COMPARISON: No relevant prior studies available. FINDINGS: BONES/JOINTS: Unremarkable. No acute fracture. No dislocation. SOFT TISSUES: Unremarkable. IMPRESSION: Normal left shoulder radiographs. Electronically signed by: Cheyenne Brown MD 06/20/2018 10:26 PM CDT
[2018-06-20 22:59] VITALS: BP 170/93; TEMP 97.9; O2SAT 99
== END 2018-06-20 22:58 | disposition home or self-care (01) ==
LOC: ER 20:27
DX: S00.93XA Contusion of unspecified part of head, initial encounter (principal); M25.552 Pain in left hip; M25.512 Pain in left shoulder; M54.2 Cervicalgia; J45.909 Unspecified asthma, uncomplicated; I10 Essential (primary) hypertension; E11.9 Type 2 diabetes mellitus without complications; K21.9 Gastro-esophageal reflux disease without esophagitis; F41.9 Anxiety disorder, unspecified; F32.9 Major depressive disorder, single episode, unspecified; Z79.899 Other long term (current) drug therapy; Z88.5 Allergy status to narcotic agent; Z88.8 Allergy status to other drugs, medicaments and biological substances; Z88.0 Allergy status to penicillin; W18.2XXA Fall in (into) shower or empty bathtub, initial encounter; Y92.002 Bathroom of unspecified non-institutional (private) residence as the place of occurrence of the external cause

== ENCOUNTER 2018-07-22 19:01 | Emergency (ER) | payer OTHER ==
[2018-07-22 19:15] VITALS: TEMP 97.8; O2SAT 99
[2018-07-22] MEDS ORDERED: SUCRALFATE 1 GM/10 ML 1 GM UD PO ONE (19:18)
[2018-07-22] MEDS ORDERED: ALUM & MAG HYDROX-SIMETHICONE 30 ML, LIDOCAINE VISCOUS 2% 15 ML PO ONE ×2 (19:18)
[2018-07-22] MEDS ORDERED: LIDOCAINE HCL 2% (MOUTH-THROAT) 15 ML UD ONE (19:29)
[2018-07-22] MEDS ORDERED: ALUM & MAG HYDROX-SIMETHICONE 30 ML UD ONE (19:29)
--- NOTE | 2018-07-22 19:39 | RAD ---
EXAM DESCRIPTION: Abdomen Series CLINICAL HISTORY: 42 years Female, epigastric pain 2 weeks COMPARISON: CT chest March 25, 2018 FINDINGS: No consolidation. No pneumothorax. Small right pleural effusion versus pleural thickening is present. Cardiomediastinal silhouette is unremarkable. Bowel gas pattern appears unremarkable. No evidence of bowel dilatation to suggest obstruction. No obvious free air. Osseous structures are unremarkable. IMPRESSION: 1. Small right pleural effusion versus pleural thickening. 2. Unremarkable bowel gas pattern. Electronically signed by: Jax Churchill MD 07/22/2018 7:37 PM CDT
[2018-07-22] MEDS ORDERED: MAGNESIUM HYDROXIDE 30 ML UD PO ONE (20:05)
[2018-07-22 20:07] VITALS: BP 115/74
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
== END 2018-07-22 20:42 | disposition home or self-care (01) ==
LOC: ER 19:01
DX: K29.00 Acute gastritis without bleeding (principal); K59.00 Constipation, unspecified; F32.9 Major depressive disorder, single episode, unspecified; F41.9 Anxiety disorder, unspecified; I10 Essential (primary) hypertension; E11.9 Type 2 diabetes mellitus without complications; K21.9 Gastro-esophageal reflux disease without esophagitis; J45.909 Unspecified asthma, uncomplicated; Z79.899 Other long term (current) drug therapy; Z88.5 Allergy status to narcotic agent; Z88.1 Allergy status to other antibiotic agents; Z88.0 Allergy status to penicillin; Z87.891 Personal history of nicotine dependence

== ENCOUNTER 2018-07-27 06:25 | Emergency (ER) | payer OTHER ==
[2018-07-27 06:39] VITALS: O2SAT 100
[2018-07-27] MEDS ORDERED: LACTATED RINGERS 1,000 ML ONE (06:41)
[2018-07-27] MEDS ORDERED: LACTATED RINGERS 1,000 ML IVS ONE (06:46)
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
[2018-07-27] MEDS ORDERED: ONDANSETRON INJ 4 MG/2 ML VIAL IV ONE (06:47)
[2018-07-27] MEDS ORDERED: PROMETHAZINE HCL INJ 25 MG in SODIUM CHLORIDE 0.9% 50ML 50 ML IVPB ONE (08:00)
[2018-07-27] MEDS ORDERED: SODIUM CHLORIDE 0.9% 50ML 50 ML ONE ×2 (08:01→11:40)
[2018-07-27] MEDS ORDERED: PROMETHAZINE HCL INJ 25 MG/ML VIAL ONE (08:01)
--- NOTE | 2018-07-27 09:02 | RAD ---
EXAM DESCRIPTION: Abdomen Series CLINICAL HISTORY: 1 day s/p anatoliy with nv COMPARISON: July 22, 2018 FINDINGS: AP supine and upright views of the abdomen show a nonspecific, nonobstructive bowel gas pattern with no evidence for free intraperitoneal air. Surgical clips from cholecystectomy are seen. No air-filled dilated loops of small bowel are seen. No significant air-fluid levels are identified. No obvious organomegaly is seen. No abnormal calcifications are seen in the expected location of the renal collecting systems. Single view of the chest shows cardiac silhouette and pulmonary vasculature to be within normal limits. Mild blunting of the right costophrenic angle. Linear areas of interstitial thickening in the lower lobes bilaterally. IMPRESSION: Nonspecific abdominal series Small right pleural effusion is again seen similar to previous exam. Interval surgical clips from cholecystectomy are seen. Linear platelike atelectasis is seen in the lower lobes bilaterally. Electronically signed by: Joo Bravo MD 07/27/2018 9:00 AM CDT
[2018-07-27] MEDS ORDERED: ALUMINUM & MAGNESIUM HYDROXIDE 30 ML UD PO ONE (09:11)
[2018-07-27] MEDS ORDERED: SUCRALFATE 1 GM/10 ML 1 GM UD PO ONE (09:11)
[2018-07-27] MEDS ORDERED: SODIUM CHLORIDE 0.9% 1000ML 1,000 ML IVS ONE (09:19)
[2018-07-27] MEDS ORDERED: cefTRIAXone SODIUM 1 GM in SODIUM CHL 0.9% 50ML MIN-BAG+ 50 ML IVPB ONE (11:00)
[2018-07-27] MEDS ORDERED: POTASSIUM CHLORIDE INJ 40 MEQ 40 MEQ in SODIUM CHLORIDE 0.9% 250ML 250 ML IVPB ONE (11:03)
[2018-07-27] MEDS ORDERED: cefTRIAXone SODIUM 1 GM VIAL IM ONE (11:03)
[2018-07-27] MEDS ORDERED: KCL 40 MEQ/D5 1/2NS 1,000 ML IVS ONE (11:05)
[2018-07-27] MEDS ORDERED: LIDOCAINE 1% 2 ML VIAL INJ ONE (11:17)
[2018-07-27] MEDS ORDERED: raNITIdine HCL INJ 50 MG in SODIUM CHLORIDE 0.9% 50ML 50 ML IVPB ONE (11:20)
[2018-07-27] MEDS ORDERED: raNITIdine HCL INJ 25 MG/ML VIAL ONE (11:40)
[2018-07-27 12:14] VITALS: BP 136/77; TEMP 97.3
== END 2018-07-27 11:35 | disposition home or self-care (01) ==
LOC: ER 06:25
DX: R11.2 Nausea with vomiting, unspecified (principal); J45.909 Unspecified asthma, uncomplicated; I10 Essential (primary) hypertension; K21.9 Gastro-esophageal reflux disease without esophagitis; F32.9 Major depressive disorder, single episode, unspecified; F41.9 Anxiety disorder, unspecified; Z87.891 Personal history of nicotine dependence; Z90.49 Acquired absence of other specified parts of digestive tract
CPT/HCPCS: 36415; 74019; 80048; 80076; 81001; 82150; 82271; 82550; 82553; 83605; 83690; 83986; 84484; 85025; 85610; 85730; A4216; J0696; J2405; J2550; J2780; J7030; J7120

== ENCOUNTER 2019-07-11 12:48 | Emergency (ER) | payer SELFPAY ==
[2019-07-11] MEDS: diphenhydrAMINE HCL 50 MG/ML VIAL IM ONE (13:06)
[2019-07-11] MEDS: DEXAMETHASONE INJ 10 MG/ML VIAL IM ONE (13:06)
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
[2019-07-11 13:37] VITALS: O2SAT 100
[2019-07-11 13:51] VITALS: BP 106/48; TEMP 96.2
== END 2019-07-11 13:30 | disposition home or self-care (01) ==
LOC: ER 12:48
DX: T78.40XA Allergy, unspecified, initial encounter (principal); Y92.9 Unspecified place or not applicable
CPT/HCPCS: J1100; J1200

== ENCOUNTER 2020-02-20 09:56 | Emergency (ER) | payer OTHER, SELFPAY ==
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
[2020-02-20] MEDS ORDERED: DEXAMETHASONE INJ 10 MG/ML VIAL PO ONE (11:24)
[2020-02-20] MEDS ORDERED: DICYCLOMINE HCL INJ 20 MG/2 ML AMP IM ONE (11:24)
[2020-02-20] MEDS ORDERED: ONDANSETRON INJ 4 MG/2 ML VIAL IV ONE (11:24)
[2020-02-20] MEDS ORDERED: KETOROLAC TROMETHAMINE INJ 30 MG/ML VIAL IV ONE (11:25)
--- NOTE | 2020-02-20 11:53 | RAD ---
EXAM DESCRIPTION: Chest,1 View CLINICAL HISTORY: SOB, pleuritic CP, COVID19 COMPARISON: 20 Jun 2018 TECHNIQUE: AP portable chest FINDINGS: Minimal scar is observed at the right lung base. The lungs are otherwise clear. The heart is within range of normal. No pleural fluid is seen. IMPRESSION: Minimal parenchymal scarring is observed at the right lung base. The chest is otherwise unremarkable. Electronically signed by: Nicolás Ruvalcaba MD 02/20/2020 11:52 AM PULVI MIXER OPERATOR
[2020-02-20] MEDS ORDERED: POTASSIUM CHLORIDE ELIXIR 20 MEQ/15 ML UD PO ONE (12:23)
[2020-02-20] MEDS ORDERED: KCL 20MEQ/WATER FOR INJ 100ML 20 MEQ in PREMIX BAG 1 BAG IVPB ONE (12:23)
[2020-02-20] MEDS ORDERED: SODIUM CHLORIDE 0.9% 1000ML 1,000 ML IVS ONE ×2 (12:25→14:25)
[2020-02-20 16:36] VITALS: BP 117/82; TEMP 97.8; O2SAT 100
== END 2020-02-20 16:36 | disposition home or self-care (01) ==
LOC: ER 09:56
DX: U07.1 COVID-19 (principal); E86.0 Dehydration; E87.6 Hypokalemia; A08.39 Other viral enteritis; F41.9 Anxiety disorder, unspecified; F32.9 Major depressive disorder, single episode, unspecified; J45.909 Unspecified asthma, uncomplicated; I10 Essential (primary) hypertension; K21.9 Gastro-esophageal reflux disease without esophagitis; Z87.891 Personal history of nicotine dependence
CPT/HCPCS: 36415; 71045; 80048; 81001; 85025; 87086; J0500; J1100; J1885; J2405; J3480; J7030